=== PATIENT | male | born 1960 | race Caucasian/White ===

== ENCOUNTER 2021-05-20 10:51 | Inpatient (IN) | payer MEDICAID, SELFPAY ==
[~2021-05-20] VITALS: Ht 165.1 cm; Wt 62.1 kg
[2021-05-20 11:28] VITALS: BP 104/36
--- NOTE | 2021-05-20 11:37 | NUR ---
DR. DAVIES BEDSIDE EVALUATING PT
--- NOTE | 2021-05-20 11:37 | NUR ---
60 Y MALE BIB CAREGIVER FROM [facility]. PER PATIENT CAREGIVER PT HAS NOT EATEN OR DRINKEN ANYTHING SINCE MAY 16. PER CAREGIVER PT IS TAKING PO MEDS AND EATING ABOUT 1 MEAL A DAY AT ABOUT 60%. LAST BM WAS 05/16/21, BUT WAS A SMALL PEBBLE SIZE. PT IS NON-VERBAL AND NON-AMBULATORY. PT ALSO PRESENTS WITH MOIST COUGH THAT STARTED TODAY. BREATH SOUNDS DIMISHED THROUGHOUT LOBES. BOWEL SOUNDS HYPOACTIVE AT THIS TIME PMH: SEIZURE, DOWN'S SYNDROME, AND MILD AORTIC STENOSIS NKA
--- NOTE | 2021-05-20 11:46 | NUR ---
CAREGIVER CURRENTLY BEDSIDE WITH PATIENT
--- NOTE | 2021-05-20 11:48 | NUR ---
XRAY BEDSIDE WITH PATIENT
--- NOTE | 2021-05-20 11:53 | NUR ---
PT TAKEN TO CT VIA [facility]
--- NOTE | 2021-05-20 12:07 | NUR ---
pt returned to bed [address] [facility]
[2021-05-20] MEDS ORDERED: AZITHROMYCIN 500 MG in DEXTROSE 5% 250 ML IV ONE (12:15)
--- NOTE | 2021-05-20 12:30 | NUR ---
# 15 FR Urinary catheter inserted utilizing sterile technique. Immediate return of 20 ml YELLOW urine noted. Urine sample collected and sent to lab. Pt tolerated procedure WELL.
--- NOTE | 2021-05-20 12:30 | NUR ---
18 GUAGE IV ESTABLISHED IN AA, BLOOD WORK COLLECTED FROM IV.
--- NOTE | 2021-05-20 12:36 | NUR ---
PRAVEEN RICE COLLECTED BEDSIDE AND HANDED TO SENIOR INFORMATION SECURITY ENGINEER JENNIFER
--- NOTE | 2021-05-20 12:37 | NUR ---
URINE HANDED TO [facility] COUNSELOR BEDSIDE
[2021-05-20] MEDS ORDERED: cefTRIAXone 1,000 MG VIAL ONE (12:44)
--- NOTE | 2021-05-20 13:02 | NUR ---
WOUND PICTURES TAKEN BEDSIDE AND PLACED INTO PATIENT CHART
--- NOTE | 2021-05-20 13:07 | NUR ---
XRAY BEDSIDE WITH PATIENT
[2021-05-20 13:21] LABS: ALBUMIN 2.2 g/dL (3.4-5.0); ANION GAP 17.5 (8-16); CARBON DIOXIDE 26.1 mmol/L (21-32); CREATININE 1.6 mg/dL (0.6-1.3); POTASSIUM 3.6 mmol/L (3.5-5.1); TOTAL BILIRUBIN 0.4 mg/dL (0.0-1.0)
[2021-05-20 13:22] LABS: HEMOGLOBIN 12.7 g/dL (12.0-18.0); MEAN CORPUSCULAR VOLUME 113.6 fL (80-94); WHITE BLOOD COUNT (AUTO) 6.8 K/uL (4.8-10.8)
--- NOTE | 2021-05-20 13:29 | NUR ---
PT ADMITTED TO TELE UNDER DR. ROCA. PT TELE HOLD IN ER BED 8 CURRENTLY
--- NOTE | 2021-05-20 13:34 | NUR ---
PT MOVED TO BED 10 VIA [facility]
[2021-05-20 13:36] LABS: HEMATOCRIT 40.8 % (36-52); MEAN CORPUSCULAR HEMOGLOBIN 35 pg (27-31); MEAN CORPUSCULAR HGB CONC 31 g/dL (33-37); PLATELET COUNT (AUTO) 136 K/uL (140-450); RED BLOOD CELL COUNT(AUTO) 3.59 MIL/uL (4.20-6.10); RED CELL DISTRIBUTION WIDTH 20.5 % (11.6-13.7)
--- NOTE | 2021-05-20 13:36 | NUR ---
PATIENT PORTAL CONCIERGE TOOK W/C HOME WITH HER
[2021-05-20] MEDS ORDERED: AZITHROMYCIN 500 MG INJ VIAL IV ONE (13:37)
--- NOTE | 2021-05-20 13:37 | NUR ---
PT MOVED TO ER BED 10
[2021-05-20] MEDS ORDERED: SYN.05 PO (13:39)
[2021-05-20] MEDS ORDERED: VITA1TAB44 PO (13:39)
[2021-05-20 13:44] LABS: APPEARANCE,URINE SL CLOUDY (CLEAR); BILIRUBIN,URINE NEGATIVE (NEGATIVE); BLOOD, URINE 2+ (NEGATIVE); COLOR,URINE YELLOW (YELLOW); LEUKOCYTE ESTERASE ,URINE NEGATIVE (NEGATIVE); NITRITE, URINE NEGATIVE (NEGATIVE); PH,URINE 5.5 (5.0-9.0); UGLUCOSE NEGATIVE (NEGATIVE)
[2021-05-20 13:49] LABS: EOSINOPHILS % (MANUAL) 2 % (0-4); LYMPHOCYTES % (MANUAL) 10 % (20-46); MONOCYTES % (MANUAL) 7 % (5-12)
[2021-05-20] MEDS ORDERED: LEVE1000 PO (13:51)
[2021-05-20] MEDS ORDERED: PYRI-218 PO (13:51)
[2021-05-20] MEDS ORDERED: MULT-2253 PO (13:51)
[2021-05-20] MEDS ORDERED: FERR-20 PO (13:51)
[2021-05-20] MEDS ORDERED: OXYB5TAB26 PO (13:51)
[2021-05-20] MEDS ORDERED: COL100L GT (13:51)
[2021-05-20] MEDS ORDERED: ALPR0.5T2 PO (13:51)
--- NOTE | 2021-05-20 13:51 | NUR ---
MED REC IS DONE.
[2021-05-20] MEDS ORDERED: NACL 0.9% 2,000 ML IV ONE (13:55)
--- NOTE | 2021-05-20 14:03 | NUR ---
RIR COMPLETED FOR PRESSURE INJURIES FOUND ON PATIENT
[2021-05-20] MEDS ORDERED: DEXT 5% / NACL 0.2% 1,000 ML IV SCH (14:40)
--- NOTE | 2021-05-20 14:43 | NUR ---
Patient will be admitted to care of DR. ROCA. Admited to TELE. Will go to room 107B. Belongings list completed. Report to KIT.
[2021-05-20] MEDS ORDERED: ALPRAZolam 0.5 MG TAB PO PRN (16:05)
[2021-05-20] MEDS ORDERED: AZITHROMYCIN 500 MG in DEXTROSE 5% 250 ML IV SCH (16:05)
[2021-05-20] MEDS ORDERED: ACETAMINOPHEN 325 MG TAB PO PRN (16:05)
[2021-05-20] MEDS ORDERED: HYDROcodone/APAP 5/325 MG 1 TAB TAB PO PRN (16:05)
[2021-05-20] MEDS ORDERED: LORazepam 2 MG/ML VIAL IVP PRN (16:05)
[2021-05-20] MEDS ORDERED: ONDANSETRON 4 MG/2 ML VIAL IVP PRN (16:05)
[2021-05-20] MEDS: LEVOFLOXACIN 500 MG/D5W PREMIX 100 ML IV SCH (18:53)
[2021-05-20] MEDS: LACTULOSE 20 GM/30 ML UDC PO SCH ×2 (18:53→19:12)
[2021-05-20] MEDS: SENNA 8.6 MG TAB PO SCH ×2 (18:54→19:13)
[2021-05-20] MEDS: MAGNESIUM CITRATE 300 ML BTL PO SCH ×2 (18:55→19:14)
[2021-05-20] MEDS ORDERED: DEXT 5% /NACL 0.9% 1,000 ML IV SCH (19:00)
[2021-05-20 19:15] VITALS: BP 100/58
--- NOTE | 2021-05-20 20:16 | NUR ---
1515: PATIENT ADMITTED TO ROOM 107B. AAOX0, NONVERBAL, HX OF DOWN SYNDROME. NO ADDITIONAL DISTRESS NOTED. IV TO THE LAC 18 G. NOTED MULTI WOUND (SEE PICTURES). PATIENT HAS NO TEETH. ADMITTED DUE TO NO EATING (PO) AND NO BM SINCE 05/16/21: DIAGNOSIS: FECAL IMPACTION AND PNA. 1530: PATIENT WAS AGITATED AND MOANING DURING JABIER CARE/HYGIENE CARE AND PICTURE TAKEN. CLEANSE WOUND TO B INNER KNEE AND BUTTOCK WITH WOUND CLEANSER. PADDED DRY, AND APPLIED FOAM DRESSING. BILAT FOOT APPLIED FOAM SAM. APPLIED PILLOW BETWEEN LEGS. 1600: PATIENT IS RESTING IN BED AWAKE. NO ADDITIONAL DISTRESS NOTED. 1800: PATIENT IS ASLEEP. WILL CONT TO MONITOR. 182: REPORT TO DR ROCA REGARDING ABNORMAL LABS NA 165, BUN 46, CREA 1.6, LA 2.5, BNP 395, ALB 2.8, LIPASE 41. SPOKE TO MD AND NEW ORDER RECEIVED D5 NS AT 100CC/HR. 1845: UNABLE TO GIVE PO MEDICINE DUE TO PATIENT IS TOO SLEEPY. NO TEETH WELL. PATIENT DID NOT HAVE ANY DENTURE WHEN ARRIVED FROM ER. 1845: PATIENT WAS TRANSFER TO LOW AIR LOSS BED DUE TO MULTI WOUNDS. PATIENT IS RESTING IN BED QUIETLY. 1900: PATIENT IS RESTING IN BED QUIETLY, ASLEEP. NO ADDITIONAL DISTRESS NOTED. WILL CONT TO MONITOR. 1929: GAVE SBAR REPORT TO ALFREDO HANSON. 1950: SEND MSG TO DR ROCA REGARDING BP 95/46 (55) NOTED DURING TALENT DEVELOPMENT MANAGER ROUNDING TO DO VS, 47 HR SINUS ELANA (SLEEPING), 22 RESP, 02 SAT 92% IN RA, TEMP 99.1. AND NO POLST. NO ADDITIONAL DISTRESS NOTED. ENDORSE TO ALFREDO HANSON. 2016: SPOKE WITH DR ROCA ON THE PHONE. FULL CODE AT THIS TIME. NS 0.9% BOLUS 1L. ENDORSE TO NEXT SHIFT MARGIE FUENTES.
[2021-05-20] MEDS ORDERED: NACL 0.9% 1,000 ML IV SCH (20:25)
[2021-05-20] MEDS ORDERED: OXYBUTYNIN 5 MG TAB PO SCH (21:00)
[2021-05-20] MEDS: POTASSIUM CHLORIDE 10 MEQ TABER PO SCH (21:00)
[2021-05-20] MEDS: CLINDAMYCIN 900 MG in DEXTROSE 5% 100 ML IV SCH (21:00)
[2021-05-20] MEDS: levETIRAcetam 500 MG TAB PO SCH (21:00)
[2021-05-20] MEDS: DOCUSATE 100 MG/10 ML UDC GT SCH (21:00)
--- NOTE | 2021-05-20 21:00 | NUR ---
Order received for 1L NS Bolus for pt. Bolus started and pt appears to be tolerating well.
--- NOTE | 2021-05-20 21:00 | NUR ---
MRSA NARES COLLECTED AND SEND TO LAB. ENDORSE TO ALFREDO HANSONRUFFLERSNOW REMOVAL SUPERVISOR.
[2021-05-20 21:30] VITALS: BP 88/48
[2021-05-20 21:45] VITALS: BP 96/39
--- NOTE | 2021-05-20 22:24 | NUR ---
One L NS Bolus completed. BP:89/42, HR 75. Pt appears comfortable and in no distress. Will continue w monitoring for remainder of shift.
[2021-05-20 23:30] VITALS: BP 111/58
--- NOTE | 2021-05-20 23:30 | NUR ---
RECEIVED PT FROM TELEMETRY FOR LOW BP.TRANSFERRED TO ICU BED 3.CONNECTED TO MONITOR.PT HAS DOWN'S SYNDROME; SR NOTED ON MONITOR.HR 77 BP 111/58 02SAT 94% ON ROOM AIR RR 21; WITH PERIPHERAL IV TO LT AC G18 INTACT INFUSING D5 NS AT 100ML/HR.PT ON REGULAR PUREED DIET.NO VOMITING NOTED; INCONTINENT OF URINE.W/MULTIPLE PRESSURE ULCERS TO BLE AND SACRAL AREA.NO PAIN NOTED.WILL CONTINUE TO CLOSELY MONITOR PT.SAFETY PRECAUTION IN PLACE.BED IN LOWEST POSITION.
--- NOTE | 2021-05-20 23:45 | NUR ---
Pt tolerated NS 1L Bolus well. Pt took HS meds well (crushed in vanilla pudding). IV site (LAC20G patent). BP 65/23 - Dr. Childs notified and ordered pt be transferred to ICU w Levophed drip (no rate specified) [facility] (in addition to GI and ID consults ordered). Pt transferred to ICU promptly. Condition stable.
[2021-05-20] MEDS ORDERED: Z-GUARD PASTE TP ONE (23:53)
[2021-05-21] VITALS (9 sets, daily range): BP systolic 90–111; BP diastolic 40–89
[2021-05-21] MEDS: DEXTROSE 5% 1,000 ML IV SCH ×3 (00:35→15:30)
--- NOTE | 2021-05-21 00:36 | NUR ---
PHONE CALL TO DR TAMMY ROCA;UPDATED ON PTS PRESENT CONDITION,MADE AWARE PTS SODIUM LEVEL 165; PT ON D5NS AT 100ML/HR; NEW ORDER TO CHANGE IVF TO D5W AT 100ML/HR.CARRIED OUT
[2021-05-21] MEDS: Z-GUARD PASTE TP SCH ×2 (01:14→12:28)
--- NOTE | 2021-05-21 03:14 | NUR ---
PT ASLEEP AT THIS TIME; EASILY AROUSABLE.STILL ON ROOM AIR.INTERMITTENT NON PRODUCTIVE COUGH NOTED.FLACC 0
[2021-05-21] MEDS ORDERED: SODIUM PHOSPHATE 118 ML ENEM RC SCH (03:35)
[2021-05-21 04:56] LABS: ALBUMIN 1.5 g/dL (3.4-5.0); ANION GAP 11.8 (8-16); CARBON DIOXIDE 27.6 mmol/L (21-32); CREATININE 1.2 mg/dL (0.6-1.3); MAGNESIUM 2.3 mg/dL (1.8-2.4); PHOSPHORUS 2.9 mg/dL (2.5-4.9); POTASSIUM 3.4 mmol/L (3.5-5.1); TOTAL BILIRUBIN 0.3 mg/dL (0.0-1.0)
[2021-05-21] MEDS: CLINDAMYCIN 900 MG in DEXTROSE 5% 100 ML IV SCH ×3 (05:10→21:20)
[2021-05-21 05:23] LABS: BASOPHILS % (AUTO) 0.2 % (0.0-2.0); EOSINOPHILS % (AUTO) 0.6 % (0.0-4.0); HEMATOCRIT 31.4 % (36-52); HEMOGLOBIN 9.7 g/dL (12.0-18.0); LYMPHOCYTES # (AUTO) 0.4 K/uL (2.0-11.5); LYMPHOCYTES % (AUTO) 8.6 % (20.5-51.1); MEAN CORPUSCULAR HEMOGLOBIN 36 pg (27-31); MEAN CORPUSCULAR HGB CONC 31 g/dL (33-37); MEAN CORPUSCULAR VOLUME 115.2 fL (80-94); MONOCYTES # (AUTO) 0.1 K/uL (0.8-1.0); MONOCYTES % (AUTO) 2.9 % (1.7-9.3); NEUTROPHILS # (AUTO) 4.1 K/uL (1.8-7.7); NEUTROPHILS % (AUTO) 87.7 % (42.2-75.2); PLATELET COUNT (AUTO) 82 K/uL (140-450); RED BLOOD CELL COUNT(AUTO) 2.72 MIL/uL (4.20-6.10); RED CELL DISTRIBUTION WIDTH 20.5 % (11.6-13.7); WHITE BLOOD COUNT (AUTO) 4.6 K/uL (4.8-10.8)
--- NOTE | 2021-05-21 05:46 | NUR ---
PT ASLEEP;EASILY AROUSABLE.NO SOB NOTED ON ROOM AIR.
--- NOTE | 2021-05-21 06:00 | NUR ---
NO URINE NOTED; BLADDER DISTENDED.MAZARIEGOS CATHETER INSERTED ORDERED.400ML LIGHT SINDHU URINE NOTED.
--- NOTE | 2021-05-21 06:23 | NUR ---
PT GIVEN JELLO; TOLERATING; ATE 90%.NO S/SX OF ASPIRATION NOTED.
[2021-05-21] MEDS: LEVOTHYROXINE 0.025 MG TAB PO SCH (06:30)
--- NOTE | 2021-05-21 07:30 | NUR ---
RECEIVED REPORT FROM CRISTINO HANSON, AWAKE ALERT ,DOES NOT FOLLOW COMMAND. WATCHING TELEVISION, ON ROOM AIR O2 SAT 94% ,IV HAS #18 LT AC INFUSING D5W @ 100 ML/HR., , MAZARIEGOS CATH DRAIN CLEAR YELLOW URINE.
[2021-05-21] MEDS ORDERED: FERROUS SULFATE 325 MG TABEC PO SCH (09:00)
[2021-05-21] MEDS ORDERED: MULTIVITAMIN PO SCH (09:00)
[2021-05-21] MEDS: DOCUSATE 100 MG/10 ML UDC GT SCH ×2 (09:03→21:50)
[2021-05-21] MEDS: MULTIVITAMIN 1 TAB PO SCH (09:04)
[2021-05-21] MEDS: PYRIDOXINE 50 MG TAB PO SCH (09:04)
[2021-05-21] MEDS: VIT-B COMP/VIT-C/FOLIC ACID 1 TAB PO SCH (09:04)
[2021-05-21] MEDS: levETIRAcetam 500 MG TAB PO SCH ×2 (09:04→21:50)
[2021-05-21] MEDS: POTASSIUM CHLORIDE 10 MEQ TABER PO SCH ×2 (09:04→21:00)
[2021-05-21] MEDS: bisacodyL 10 MG SUPP RC SCH (09:07)
--- NOTE | 2021-05-21 09:08 | NUR ---
SEEN BYDR. ROCA AT BED SIDE. ORDER FECEIVED,
--- NOTE | 2021-05-21 09:15 | NUR ---
SEEN BY ABELINO GÓMEZ PT. TO TRANSFER TO TELE.
--- NOTE | 2021-05-21 10:41 | NUR ---
call tele report gived to YARA Julian
[2021-05-21] MEDS ORDERED: POTASSIUM CHLORIDE 20% 40 MEQ/15 ML UDC GT SCH (11:00)
--- NOTE | 2021-05-21 11:10 | NUR ---
TRANSFER PT. TO RM 107 IN BED. REPORT GIVE TO YARA AT BED SIDE.
[2021-05-21] MEDS ORDERED: POTASSIUM CHLORIDE 20% 40 MEQ/15 ML UDC PO SCH (12:00)
--- NOTE | 2021-05-21 12:00 | NUR ---
PT ASSISTED WITH LUNCH , ONE PATIENT ASSIST . TOLERATED WELL. ALL SAFETY MEASURES ARE IN PLACE.
[2021-05-21] MEDS: SENNA 8.6 MG TAB PO SCH ×2 (12:27→17:59)
[2021-05-21] MEDS: LACTULOSE 20 GM/30 ML UDC PO SCH ×2 (12:28→17:59)
--- NOTE | 2021-05-21 12:45 | NUR ---
DC PLANNIN YRS OLD MALE PATIENT WAS ADMITTED FROM [facility] WITH A DX OF FECAL IMPACTION. PATIENT HAS A HX OF SZ, AND DOWN SYNDROME. CXR SHOWED PNEUMONIA CT ABD SHOWED RECTAL FECAL IMPACTION. LAC 5.1 -2.3 TROP 0.134. NA+ 162 ADMINISTERED IVF, IV ABX CLINDAMYCIN AND CONTINUED HOME MEDS. CONSULTED WITH GI AND ID. DC PLAN TO RETURN TO [facility] WHEN STABLE. CM TO FOLLOW. Addendum: 05/23/21 at 1602 by Cher Thompson RN DC PLANNING: SPOKE WITH DR ABELINO Tom REGARDING THE DISCHARGE PLAN, HE STATED AWAITING FOR BP TO BE STABLE AND MACHINERY MOVER CLEARANCE. DC PLAN TO GO BACK TO NURSING HOME WITH PO ABX. PLAS CALL THE FACILITY FOR TRANSPORT. CM TO FOLLOW Addendum: 05/26/21 at 1504 by Cher Thompson RN DC PLANNING: PER PRIMARY NURSE JOSELIN STATED WHEN SHE CALLED THE FACILITY THE NURSE TOLD HER THEY CAN NOT TAKE PATIENT BACK BECAUSE OF UN STAGEABLE WOUND. CALLED THE RESIDENT [phone] SPOKE WITH ALLEGRA DISCUSSED THE ISSUES AND CONCERN, ALLEGRA STATED WILL TALK TO HER NURSE AND CALL BACK. FAXED TO [facility], [facility], [facility], [facility], [facility] AND [facility]. CM TO FOLLOW Addendum: 05/28/21 at 1540 by Cher Thompson RN DC PLANNING: [facility] SPOKE WITH DMITRY [facility] NO BED AVAILABLE .[facility] SPOKE WITH RL NO BED AVAILABLE. FAXED TO [facility], [facility] . CM TO FOLLOW Addendum: 05/29/21 at 0901 by Cher Thompson RN DC PLANNING: RECEIVED A CALL FROM [facility] SPOKE WITH JULIO C CORTEZ ACCEPTED PATIENT AND CAN GO TO ROOM 16A THE AD[address]ESS [id number] [place] [id number] # TO GIVE REPORT [phone] . ARRANGED TRANSPORT WITH [facility] U[facility] 11AM. NOTIFIED SAMY HANSON.
--- NOTE | 2021-05-21 12:46 | NUR ---
05/21/21 RD INITIAL ASSESSMENT COMPLETED PLEASE REFER TO NUTRITION ASSESSMENT UNDER CARE ACTIVITY FOR ESTIMATED NUTRITIONAL NEEDS. 1. CONTINUE PUREE DIET TOLERATED 3. RECOMMEND ENSURE BID FOR BREAKFAST AND DINNER -THIS WILL PROVIDE 700 KCALS 40 GM PROTEIN. 3. RECOMMEND MACRINA IX DAILY FOR LUNCH 4. RD TO FOLLOW-UP 2-3 DAYS, HIGH RISK REVIEWED BY ORLANDO LUTHER RD
--- NOTE | 2021-05-21 13:09 | NUR ---
WOUND CARE EVALUATION NOTE: REASON FOR EVALUATION: LOW DAVON SCALE AND MULTIPLE PRESSURE INJURY WOUNDS SKIN ASSESSMENT DONE WITH THIS 60 Y/O PT ADMITTED FROM [facility] TO [facility] WITH INITIAL DX DECREASE ORAL INTAKE, PAST MEDICAL HX HISTORY SEIZURE DISORDER, DOWN SYNDROME, ANEMIA, OVERACTIVE BLADDER, HYPOTHYROIDISM AND AORTIC STENOSIS. PT. ADMITTED WITH MULTIPLE PRESSURE INJURIES, ALBUMIN LEVEL 1.5. BMI 17. ALL ABOVE INFORMATION OBTAINED FROM ADMISSION H&P. PT IS AWAKE, ABLE TO MAKE HAND GESTURE FOR YES, NO PT WITH UPPER AND LOWER EXTREMITIES CONTRACTURES. SKIN IS WARM AND MOIST, BLE NO HAIR GROWTH, NO EDEMA. DORSAL PEDAL PULSES PRESENT AND NORMAL. CAPILLARY REFILLED < 2 SEC. X 10 TOES, INCONTINENT BOWEL AND BLADDER, PLAN OF CARE DISCUSSED WITH PRIMARY RN. INTEGUMENTARY: -ORAL MEMBRANE PINK INTACT, LIPS, CHEEKS SKIN DRY, NO OPEN WOUNDS -MOISTURE ASSOCIATED DERMATITIS R/L GROINS EXTENDED TO SCROTUM SKIN RED, MOIST AND INTACT -PRESSURE INJURY SACRALCOCCYX UN-STAGEABLE 80% BROWN SOFT ESCHAR TISSUE WITH 20 % PARTIAL THICKNESS SKIN LOSS WITH DTI TO WOUND BED. JABIER-WOUND SKIN NON-BLANCHABLE, ENTIRE AREA [id number], WOUND BED DRY, NO ODOR, FURTHER DAMAGE INDICATED. -PRESSURE INJURY DTI TO LEFT MEDIAL KNEE 5X3CM 100% MAROON, JABIER WOUND SKIN DRY INTACT -PRESSURE INJURY UN-STAGEABLE LEFT FOOT PLANTAR ASPECT 2X1CM 100% BLACK DRY ESCHAR TISSUE, JABIER WOUND SKIN INTACT. -PRESSURE INJURY STAGE 2 LEFT MEDIAL HEEL 2X2CM CLEAR FLUIDS BLISTER, SKIN INTACT -PRESSURE INJURY STAGE 2 RIGHT TROCHANTER 4X3X0.1CM WOUND BED 100% PINK, MOIST, NO ODOR JABIER WOUND SKIN DRY INTACT -PRESSURE INJURY DTI TO RIGHT UPPER LATERAL LEG 3X2CM 100% MAROON BLISTERING SKIN, THIN AND EASILY TO TORN, JABIER WOUND SKIN DRY INTACT -PRESSURE INJURY DTI TO RIGHT MEDIAL KNEE 3X3CM 100% MAROON, BLISTERING SKIN, JABIER WOUND SKIN DRY INTACT RECOMMENDATIONS: -APPLY HYDRAGUARD TO R/L GROINS EXTENDED TO SCROTAL BID AND PRN IF SOILING -APPLY FOAM DRESSING TO LEFT, RIGHT MEDIAL KNEES, LEFT MEDIAL HEEL AND RIGHT UPPER LATERAL LEG Q3 DAYS AND PRN IF SOILING, OFFLOADING AREA -CLEANSE SACRALCOCCYX AND RIGHT HIP GENTLY WITH WOUND CARE SOLUTION, PAT DRY APPLY HYDROGEL AND COVER WITH DRY ISLAND DRESSING AND DAILY AND PRN SOILAGE. -PAINT LEFT PLANTAR FOOT WITH BETADINE SWAP BID AND MATTHEW -APPLY HEEL PROTECTOR TO BILATERAL HEELS -TURN AND REPOSITION PATIENT Q 2H -ASSESS AND MONITOR SKIN CONDITION DURING POSITION CHANGE -OFFLOAD BILATERAL HEELS BY PLACING PILLOWS UNDER CALVES AT ALL TIMES, UNLESS OTHERWISE CONTRAINDICATED -PRESSURE REDISTRIBUTION SURFACE THERAPY -KEEP SKIN CLEAN AND DRY AT ALL TIMES. PLEASE CONTACT WOUND CARE NURSE FOR ANY QUESTION AND CHANGE OF WOUND CONDITION.
--- NOTE | 2021-05-21 13:30 | NUR ---
PATIENT HAS BEEN SCREENED AND CATEGORIZED HIGH NUTRITION RISK. PATIENT WILL BE SEEN WITHIN 1-2 DAYS OF ADMISSION. 05/21/21-05/22/[address]
--- NOTE | 2021-05-21 14:10 | NUR ---
PT CHANGED AND REPOSITIONED. MD PUGA AT BEDSIDE. PER D IF PT HAS NO BM DO ENEMA
[2021-05-21] MEDS: LEVOFLOXACIN 500 MG/D5W PREMIX 100 ML IV SCH (15:30)
--- NOTE | 2021-05-21 15:41 | NUR ---
PT RESTRAINS ASSESSED. PT RELEASED FOR 15 MIN PT TOOK OT TRACHEOSTOMY AT THIS TIME ATTEMPTED TO GET OUT OF BED. PT REORIENTED AND PLACED BACK FOR SAFERTY REASONS. ALL SAFETY MEASURES ARE IN PLACE Addendum: 05/21/21 at 1817 by Shala Garibay RN RN WRONG PT
--- NOTE | 2021-05-21 17:15 | NUR ---
PT REPOSITIONED TOLERATED WELL. SMALL BM ATT HIS TIME , PT CHANGED AND REPOSITIONED ALL SAFETY MEASURES IN PLACE
[2021-05-21] MEDS: METOCLOPRAMIDE 10 MG/2 ML INJ VIAL IVP SCH (18:00)
--- NOTE | 2021-05-21 18:15 | NUR ---
DINNER MEAL SET UP. ALL SAFETY MEASURES IN PLACE
--- NOTE | 2021-05-21 19:27 | NUR ---
PT ENDORSED TO FUNERAL HOME ASSOCIATE RN , PT INSTABLE CONDITION
--- NOTE | 2021-05-21 19:28 | NUR ---
RECEIVED REPORT FROM AM NURSE. PATIENT IS AWAKE NON VERBAL FOLLOWS COMMAND. NO S/S OF RESPIRATORY DISTRESS. BREATHING REGULAR NON LABORED. IVF D5W INFUSING AT 100 ML/HR ON THE LFA. SKIN WARM AND DRY TO TOUCH. ALL SAFETY PRECAUTIONS ARE IN PLACE. CALL LIGHT WITHIN REACH. WILL CONTINUE TO MONITOR.
--- NOTE | 2021-05-21 21:30 | NUR ---
PATIENT HAS 2ND DEGREE BLOCK MOBITZ 2 OCCASIONALLY. CALLED AND SPOKE WITH DR. TAMMY ROCA, ORDERED CARDIOLOGY CONSULT WITH DR. SULEMA POOLE.
--- NOTE | 2021-05-21 21:45 | NUR ---
POTASSIUM 20 MEQ NOT GIVEN CAUSE MEDS IS EXTENDED RELEASE AND PATIENT CANNOT SWALLOW WHOLE. PT K+ - 3.4.
[2021-05-21] MEDS: POLYETHYLENE GLYCOL 17 GM/PKT PO SCH (21:50)
--- NOTE | 2021-05-21 21:50 | NUR ---
ADMINISTERED MEDS PER MD ORDERED.
--- NOTE | 2021-05-21 22:25 | NUR ---
IV INFILTRATED. INSERTED A NEW LINE ON THE RIGHT WRIST, TOLERATED WELL.
[2021-05-22] VITALS: BP 110/55
[2021-05-22] MEDS: Z-GUARD PASTE TP SCH ×2 (01:00→13:13)
[2021-05-22] MEDS: HYDRAGUARD CREAM TP SCH ×2 (01:00→13:13)
--- NOTE | 2021-05-22 02:12 | NUR ---
ROUNDED PATIENT. PT IS AWAKE NO SOB NOTED. RESPIRATION EVEN UNLABORED. SAFETY MEASURES ARE IN PLACE. CALL LIGHT WITHIN REACH.
[2021-05-22] MEDS: METOCLOPRAMIDE 10 MG/2 ML INJ VIAL IVP SCH ×5 (02:35→23:49)
[2021-05-22 04:00] VITALS: BP 105/51
[2021-05-22] MEDS: CLINDAMYCIN 900 MG in DEXTROSE 5% 100 ML IV SCH ×3 (04:51→20:58)
[2021-05-22] MEDS: LEVOTHYROXINE 0.025 MG TAB PO SCH (06:33)
--- NOTE | 2021-05-22 06:33 | NUR ---
SYNTHROID GIVEN PER MD ORDERED.
--- NOTE | 2021-05-22 06:33 | NUR ---
REGLAN 5 MG IVP GIVEN ORDERED
[2021-05-22 06:49] LABS: BASOPHILS % (AUTO) 0.3 % (0.0-2.0); EOSINOPHILS # (AUTO) 0.1 K/uL (0-0.4); EOSINOPHILS % (AUTO) 1.8 % (0.0-4.0); HEMATOCRIT 30.7 % (36-52); HEMOGLOBIN 9.6 g/dL (12.0-18.0); LYMPHOCYTES # (AUTO) 0.4 K/uL (2.0-11.5); LYMPHOCYTES % (AUTO) 10.6 % (20.5-51.1); MEAN CORPUSCULAR HEMOGLOBIN 35 pg (27-31); MEAN CORPUSCULAR HGB CONC 31 g/dL (33-37); MEAN CORPUSCULAR VOLUME 112.3 fL (80-94); MONOCYTES # (AUTO) 0.1 K/uL (0.8-1.0); MONOCYTES % (AUTO) 3.8 % (1.7-9.3); NEUTROPHILS # (AUTO) 3.2 K/uL (1.8-7.7); NEUTROPHILS % (AUTO) 83.5 % (42.2-75.2); PLATELET COUNT (AUTO) 72 K/uL (140-450); RED BLOOD CELL COUNT(AUTO) 2.73 MIL/uL (4.20-6.10); RED CELL DISTRIBUTION WIDTH 20.2 % (11.6-13.7); WHITE BLOOD COUNT (AUTO) 3.8 K/uL (4.8-10.8)
[2021-05-22 06:51] LABS: ANION GAP 11.5 (8-16); CARBON DIOXIDE 24.2 mmol/L (21-32); CREATININE 1.2 mg/dL (0.6-1.3)
[2021-05-22 06:55] LABS: MAGNESIUM 2.1 mg/dL (1.8-2.4); PHOSPHORUS 3.3 mg/dL (2.5-4.9)
[2021-05-22 06:58] LABS: POTASSIUM 2.7 mmol/L (3.5-5.1)
--- NOTE | 2021-05-22 06:59 | NUR ---
RECEIVED CRITICAL VALUE FROM KAT, BUN - 30. K - 2.7.
--- NOTE | 2021-05-22 07:03 | NUR ---
RECEIVED REPORT FROM GEOGRAPHIC INFORMATION SYSTEMS DIRECTOR NURSE. PATIENT STABLE. NO S/S OF DISTRESS. BREATHING SYMMETRICAL. CALL LIGHT IN REACH. ALL SAFETY MEASURES IN PLACE. IV RUNNING PER MD ORDERS
[2021-05-22] MEDS: DEXTROSE 5% 1,000 ML IV SCH (07:13)
--- NOTE | 2021-05-22 07:20 | NUR ---
MESSAGED DR. ROCA, GOT AN ORDER FOR K=RIDER 40 MEQ. WILL ENDORSED TO AM NURSE FOR FOLLOW UP WITH PHARMACY.
--- NOTE | 2021-05-22 07:30 | NUR ---
CONDITION REMAIN STABLE. ENDORSED TO AM SHIFT NURSE FOR CONTINUITY OF CARE.
--- NOTE | 2021-05-22 07:35 | NUR ---
ENDORSED TO AM NURSE FOR CONTINUITY OF CARE. PT IS STABLE.
[2021-05-22 08:00] VITALS: BP 97/47
[2021-05-22] MEDS ORDERED: KCL 20 MEQ/WATER INJ PREMIX 200 ML IV SCH (08:30)
[2021-05-22] MEDS ORDERED: MAGNESIUM CITRATE 300 ML BTL PO ONE (09:00)
[2021-05-22] MEDS: POTASSIUM CHLORIDE 10 MEQ TABER PO SCH (09:00)
[2021-05-22] MEDS: DOCUSATE 100 MG/10 ML UDC GT SCH (09:34)
[2021-05-22] MEDS: LACTULOSE 20 GM/30 ML UDC PO SCH ×3 (09:34→17:47)
[2021-05-22] MEDS: POLYETHYLENE GLYCOL 17 GM/PKT PO SCH ×2 (09:35→21:41)
[2021-05-22] MEDS: levETIRAcetam 500 MG TAB PO SCH ×2 (09:35→20:58)
[2021-05-22] MEDS: VIT-B COMP/VIT-C/FOLIC ACID 1 TAB PO SCH (09:36)
[2021-05-22] MEDS: SENNA 8.6 MG TAB PO SCH ×3 (09:37→17:47)
[2021-05-22] MEDS: PYRIDOXINE 50 MG TAB PO SCH (09:37)
[2021-05-22] MEDS: MULTIVITAMIN 1 TAB PO SCH (09:37)
[2021-05-22] MEDS: bisacodyL 10 MG SUPP RC SCH (09:38)
--- NOTE | 2021-05-22 09:50 | NUR ---
PT MEDICATED PER MD ORDER. EDUCATED ON MEDICATION GIVE. PT IS NONVERBAL AND IN NEED OF REINFORCEMENT. PATIENT HAD BM AND WAS CLEANED AND CHANGED. SACRAL DRESSING CHANGED. PATIENT STABLE. NO S/S OF DISTRESS. BREATHING SYMMETRICAL. CALL LIGHT IN REACH. ALL SAFETY MEASURES IN PLACE. IV RUNNING PER MD ORDERS
--- NOTE | 2021-05-22 11:31 | NUR ---
NEW IV INSERTED ON LEFT HAND 24 G. IV ON RIGHT HAND STILL INTACT AND FLUSHING. RIGHT HAND SWOLLEN. NO S/S OF DISTRESS. ALL SAFETY MEASURES IN PLACE.
[2021-05-22] MEDS: POTASSIUM CHL 20 MEQ / DEXT 5% 1,000 ML IV SCH ×2 (11:34→23:55)
[2021-05-22 12:00] VITALS: BP 86/42
--- NOTE | 2021-05-22 12:38 | NUR ---
SPOKE TO DR POOLE. UPDATED ON ORDERS. POTASSIUM FLUIDS RUNNING PER MD ORDER. WILL CONTINUE TO MONITOR.
[2021-05-22] MEDS: GAUZE TP SCH (13:13)
[2021-05-22] MEDS: SKINTEGRITY HYDROGEL TP SCH (15:16)
[2021-05-22] MEDS: LEVOFLOXACIN 500 MG/D5W PREMIX 100 ML IV SCH (15:38)
--- NOTE | 2021-05-22 15:53 | NUR ---
PT RESTING IN BED. NO S/S OF DISTRESS. BREATHING SYMMETRICAL. CALL LIGHT IN REACH. ALL SAFETY MEASURES IN PLACE. IV FLUIDS RUNNING PER MD ORDER
[2021-05-22 16:00] VITALS: BP 103/40
--- NOTE | 2021-05-22 16:36 | NUR ---
DC PLANNING JOEL ATTEMPTED TO CONTACT PATIENT'S [facility] WORKER CHIN CHOUDHURY AT . IRC/WORKER DID NOT RESPONDED AND SW LEFT HER SEVERAL CALL OVER PAST TWO DAYS. SW WILL ATTEMPT AGAIN TOMORROW AND FOLLOW UP WITH PATIENT NEEDED. Addendum: 05/26/21 at 1348 by Gwen Funes CM JOEL HAS ATTEMPTED SEVERAL TIMES TO CONTACT PATIENT'S [facility] WORKER CHIN CHOUDHURY AT . JOEL ATTEMPTED AGAIN TODAY 05/26/2021 AT ABOUT 13:30 TO REACH IRC/WORKER WHO DID NOT RESPONDED AND SW LEFT HER ANOTHER MSG. SW ALSO ATTEMPTED TO BE TRANSFER TO A DUTY WORKER DUE TO PATIENT'S LEVEL OF CARE BEING URGENT AND IN NEED OF DISCUSSION WITH IRC BUT NO ONE ANSWER AND INSTEAD THESE CHOP SAW OPERATOR LEFT ANOTHER MSG TO DUTY IR/WORKER LINE FOR SOMEONE TO CALL BACK THESE CHOP SAW OPERATOR AND ADDRESS PATIENT'S MATTERS. Addendum: 05/26/21 at 1604 by Gwen Funes CM DC PLANNING: RE HER DUTY WORKER FROM [facility] CALL BACK THESE CHOP SAW OPERATOR ABOUT PATIENT INFORMATION AND CURRENT STATUS WITH NEEDING EMERGENCY PLACEMENT DUE TO CURRENT PLACEMENT NOT ACCEPTING HIM BACK OF TODAY. 05/26/2021 PER IRC/WORKER SHE WILL BE LOOKING FOR EMERGENCY PLACEMENT TODAY HOWEVER; SHE APOLOGIZED FOR GETTING ON PATIENT'S CASE AND LOOKING FOR PLACEMENT UNTIL NOW. SHE REPORTED THAT BECAUSE OF THE TIME THERE IS THE CHANCE THAT PATIENT WILL NOT BE DC TODAY BUT POSSIBLY TOMORROW. SHE WAS TRANSFER TO TO DISCUSS PATIENT LEVEL OF CARE NEEDS TO SEARCH FOR PROPER PLACEMENT BETWEEN TODAY AND TOMORROW. Addendum: 05/26/21 at 1646 by Gwen Funes JOEL CALL THE DISPATCHER SERVICE CHIEF ALLEGRA HEAD AT [facility] IN [facility] . TO DISCUSS AND GATHER HIS COLLATERAL INFORMATION. PER ALLEGRA HEAD PATIENT HAS BEEN RESIDING AT THEIR BOARD AND CARE FACILITY FOR ABOUT 5 DAYS AFTER PATIENT DISCHARGED FROM [facility] DUE TO WOUND CARE. =ER ALLEGRA HEAD PATIENT WILL NOT BE ABLE TO RETURN TO THEIR FACILITY OF TODAY 05/26/2021. JOEL CALL PATIENT'S IRC/ WORKER MACEY NEELY AT HOWEVER SHE DID NOT REPOND BACK AND JOEL CONTACTED IRC/DUTY WORKER RE HER AT . PER RE HER PATIENT HAS NO ISSUES GETTING CARE AND MEDICATIONS FROM PCP DR. ANTHONY ALVAREZ, PATIENT IS NOT CONSERVED AND WILL BE TRANSPORTED TO AN EMERGENCY PLACEMENT THAT MEET HIS MEDICAL NEEDS WHEN PLACEMENT IS FOUND POSSIBLY TODAY 05/26/2021 OR TOMORROW 05/27/2021. DUE TO LAST PLACEMENT [facility] PLACE ITS NOT TAKING PATIENT BACK AFTER HIS DC FROM [facility] TODAY. PER IRC/DUTY WORKER RE HER PATIENT IS NOT CONSERVED AND HAS NO FAMILY INVOLVEMENT IN HIS CARE. PER RE HER IRC ARE PATIENT'S MEDICAL DECISION MAKERS FOR PATIENT'S CARE AND IRC/WORKER WILL BE ARRANGING PATIENT'S NEW PLACEMENT TO A FACILITY THAT MEETS HIS NEEDS. IRC WORKER RE HER WILL BE CONTACTING [facility]/JOEL/JIM TO DISCUSS PATIENTS DISCHARGE. SW WILL FOLLOW UP NEEDED.
--- NOTE | 2021-05-22 17:46 | NUR ---
PT PULLED OUT IV ON LEFT HAND. CANULA INTACT. NO S/S OF DISTRESS. BREATHING SYMMETRICAL. IV ON RIGHT HAND STILL INTACT AND FLUSHING. CALL LIGHT IN REACH. ALL SAFETY MEASURES IN PLACE.
--- NOTE | 2021-05-22 19:25 | NUR ---
RECEIVED BEDSIDE REPORT FROM AM SHIFT RN. PT HAS A MAZARIEGOS CATHETER, ON ROOM AIR, BED BOUND. PT HAS A LEFT WRIST 24 G. NON-VERBAL, ON PUREE DIET. HAS POTASSIUM CHL 20MEQ RUNNING AT 80ML/HR, SAFETY MEASURE IN PLACE, PT STABLE. WILL CONTINUE TO MONITOR.
--- NOTE | 2021-05-22 19:34 | NUR ---
ENDORSED PT TO MFT NURSE. PATIENT STABLE. NO S/S OF DISTRESS. BREATHING SYMMETRICAL. CALL LIGHT IN REACH. ALL SAFETY MEASURES IN PLACE. IV RUNNING PER MD ORDERS.
[2021-05-22 20:00] VITALS: BP 105/55
--- NOTE | 2021-05-22 21:41 | NUR ---
ADMINISTERED PTS MEDS. CHANGED PTS SOILED DIAPER. HAD A BM , SOFT, AND GREEN. NEW IV SITE RIGHT HAND 22G. D/C LEFT WRIST 24G, CALLED DR. FREDERICK TO GET A PO LIQUID ORDER OF POTASSIUM, ORDER IS IN. D/C POTASSIUM 20MEQ PO EXTENDED RELEASE BECAUSE CANNOT CRUSH.
[2021-05-22] MEDS ORDERED: POTASSIUM CHLORIDE 20% 40 MEQ/15 ML UDC PO SCH ×2 (22:00→22:15)
[2021-05-22] MEDS ORDERED: POTASSIUM CHLORIDE 20% 40 MEQ/15 ML UDC ONE (22:09)
--- NOTE | 2021-05-22 22:13 | NUR ---
PT HAS AN ORDER FOR EXTENDED RELEASE POTASSIUM TABLETS, BUT UNABLE TO CRUSH THEM. CONTACTED DR. FREDERICK FOR LIQUID POTASSIUM . ORDER CARRIED OUT.
[2021-05-23] VITALS: BP 122/43
--- NOTE | 2021-05-23 00:10 | NUR ---
PATIENT IS ASLEEP. NO SIGNS OF DISTRESS, PT STABLE. WILL CONTINUE TO MONITOR.
[2021-05-23 01:04] LABS: PROTHROMBIN TIME 12.7 secs (10.8-13.4)
[2021-05-23] MEDS: HYDRAGUARD CREAM TP SCH ×2 (01:09→13:22)
[2021-05-23] MEDS: Z-GUARD PASTE TP SCH ×2 (01:09→13:22)
[2021-05-23 04:00] VITALS: BP 84/32
[2021-05-23] MEDS: CLINDAMYCIN 900 MG in DEXTROSE 5% 100 ML IV SCH ×3 (04:36→20:43)
[2021-05-23] MEDS: METOCLOPRAMIDE 10 MG/2 ML INJ VIAL IVP SCH ×2 (06:00→12:35)
--- NOTE | 2021-05-23 06:00 | NUR ---
CONTACTED DR. POOLE ABOUT PTS BP.77/32 HR 47 . RECEIVED AN ORDER OF 500CC BOLUS NS STAT, AND AFTER GIVE NS @75ML/HR. ORDER CARRIED OUT.
[2021-05-23 06:20] LABS: HEMATOCRIT 26.1 % (36-52); HEMOGLOBIN 8.5 g/dL (12.0-18.0); MEAN CORPUSCULAR HEMOGLOBIN 36 pg (27-31); MEAN CORPUSCULAR HGB CONC 32 g/dL (33-37); MEAN CORPUSCULAR VOLUME 110.8 fL (80-94); PLATELET COUNT (AUTO) 58 K/uL (140-450); RED BLOOD CELL COUNT(AUTO) 2.36 MIL/uL (4.20-6.10); RED CELL DISTRIBUTION WIDTH 19.8 % (11.6-13.7); WHITE BLOOD COUNT (AUTO) 3.3 K/uL (4.8-10.8)
[2021-05-23] MEDS ORDERED: NACL 0.9% 1,000 ML IV SCH (06:30)
[2021-05-23] MEDS ORDERED: NACL 0.9% 500 ML IV SCH (06:30)
[2021-05-23 06:48] LABS: ALBUMIN 1.4 g/dL (3.4-5.0); ANION GAP 13.5 (8-16); CARBON DIOXIDE 21.5 mmol/L (21-32); CREATININE 1.3 mg/dL (0.6-1.3); TOTAL BILIRUBIN 0.4 mg/dL (0.0-1.0)
[2021-05-23] MEDS: LEVOTHYROXINE 0.025 MG TAB PO SCH (07:00)
--- NOTE | 2021-05-23 07:30 | NUR ---
ENDORSED BEDSIDE REPORT TO AM SHIFT RN.
--- NOTE | 2021-05-23 07:31 | NUR ---
RECEIVED REPORT FROM PROCESS DEVELOPMENT TECHNICIAN FOR CONTINUITY OF CARE. PATIENT IS IN BED AT THIS TIME. WILL CONTINUE TO MONITOR. CALL LIGHT WITHIN REACH. ALL SAFETY MEASURES IN PLACE.
[2021-05-23 08:00] VITALS: BP 94/41
--- NOTE | 2021-05-23 08:04 | NUR ---
PLACED CALL TO DR POOLE, CARDIOLOGY REGARDING PATIENT'S BP. BP IS 89/39 WITH A PULSE OF 39. AWAITING CALL BACK.
--- NOTE | 2021-05-23 08:11 | NUR ---
RECEIVED A CALL BACK FROM DR. POOLE. INFORMED HIM OF PATIENTS LOW BP AND HEART RATE, WELL MEDICATIONS SCHEDULED. DR ORDERED POTASSIUM 40 MeQ 15ML NOW, EKG, AND TROPONIN. PATIENT WILL RECEIVE A TOTAL OF 80 MEQ POTASSIUM.
[2021-05-23 08:33] LABS: EOSINOPHILS % (MANUAL) 3 % (0-4); LYMPHOCYTES % (MANUAL) 14 % (20-46); MONOCYTES % (MANUAL) 3 % (5-12)
[2021-05-23] MEDS ORDERED: POTASSIUM CHLORIDE 20% 40 MEQ/15 ML UDC PO SCH (09:00)
--- NOTE | 2021-05-23 09:15 | NUR ---
RECEIVED CALL FROM LAB TO REPORT TROPONIN [phone]. DR POOLE MADE AWARE. WILL CONTINUE TO MONITOR.
[2021-05-23] MEDS: LACTULOSE 20 GM/30 ML UDC PO SCH ×3 (09:20→16:05)
[2021-05-23] MEDS: POTASSIUM CHLORIDE 20% 40 MEQ/15 ML UDC PO SCH ×2 (09:20→20:44)
[2021-05-23] MEDS: PYRIDOXINE 50 MG TAB PO SCH (09:21)
[2021-05-23] MEDS: MULTIVITAMIN 1 TAB PO SCH (09:21)
[2021-05-23] MEDS: POLYETHYLENE GLYCOL 17 GM/PKT PO SCH (09:22)
[2021-05-23] MEDS: VIT-B COMP/VIT-C/FOLIC ACID 1 TAB PO SCH (09:22)
[2021-05-23] MEDS: SENNA 8.6 MG TAB PO SCH ×2 (09:22→13:22)
[2021-05-23] MEDS: levETIRAcetam 500 MG TAB PO SCH ×2 (09:23→20:43)
[2021-05-23] MEDS: bisacodyL 10 MG SUPP RC SCH (09:30)
[2021-05-23 12:00] VITALS: BP 98/42
--- NOTE | 2021-05-23 12:00 | NUR ---
DID ROUNDS ON PATIENT. PATIENT IN BED AT THIS TIME. RESPIRATIONS ARE EVEN AND UNLABORED. BP IS 98/46 AT THIS TIME WITH HEART RATE AT 47. NO SIGNS OF DISTRESS NOTED. WILL CONTINUE TO MONITOR PATIENT AND WILL RE-ASSESS BP AND HEART RATE.
[2021-05-23] MEDS: POTASSIUM CHL 20 MEQ / DEXT 5% 1,000 ML IV SCH (12:25)
--- NOTE | 2021-05-23 12:57 | NUR ---
05/23/21 RD FOLLOW UP COMPLETED PLEASE REFER TO NUTRITION ASSESSMENT UNDER CARE ACTIVITY FOR ESTIMATED NUTRITIONAL NEEDS. 1. CONTINUE PUREE DIET TOLERATED 2. CONTINUE ENSURE BID FOR BREAKFAST AND DINNER -THIS WILL PROVIDE 700 KCALS 40 GM PROTEIN. 3. CONTINUE MACRINA IX DAILY FOR LUNCH 4. RD TO FOLLOW-UP 2-3 DAYS, HIGH RISK REVIEWED BY ARACELI HENRIQUEZ RD
[2021-05-23] MEDS: SKINTEGRITY HYDROGEL TP SCH (13:24)
[2021-05-23] MEDS: GAUZE TP SCH (13:25)
[2021-05-23] MEDS: LEVOFLOXACIN 500 MG/D5W PREMIX 100 ML IV SCH (15:28)
--- NOTE | 2021-05-23 15:50 | NUR ---
CONTACTED RESPIRATORY THERAPIST BECAUSE PATIENT WAS SATING IN THE LOW 80's. PLACED PATIENT ON 5L NASAL CANULA. RESPIRATORY CAME AND DEEP SUCTIONED PATIENT. SUCTION WAS SUCCESSFUL MUCUS WAS REMOVED AND PATIENT NOW SATING AT 92-93 ON ROOM AIR. PATIENT IS STABLE.
[2021-05-23 16:00] VITALS: BP 94/46
--- NOTE | 2021-05-23 16:02 | NUR ---
PATIENT HEART RATE AT 72 BPM. PATIENT IN BED AT THIS TIME. ASSISTED AUTISM TUTOR WITH CLEANING AND REPOSITIONING PATIENT. PATIENT TOLERATED WELL. WILL CONTINUE TO MONITOR.
[2021-05-23] MEDS ORDERED: FUROSEMIDE 20 MG TAB PO SCH (16:05)
--- NOTE | 2021-05-23 16:15 | NUR ---
DR IBRAHIM AT BEDSIDE. INFORMED HIM OF PATIENT LOW SATURATION AND RT DEEP SUCTIONING. NO NEW ORDERS AT THIS TIME.
[2021-05-23] MEDS: MIDODRINE 5 MG TAB PO SCH (19:07)
--- NOTE | 2021-05-23 19:18 | NUR ---
ENDORSED PATIENT TO [employer] SALES REPRESENTATIVE FOR CONTINUITY OF CARE. PATIENT IS STABLE.
[2021-05-23 20:00] VITALS: BP 102/58
--- NOTE | 2021-05-23 22:00 | NUR ---
PATIENT RECEIVED IN BED ALERT. TRACH/VENT FI02 24, TV 500, RATE 12, AND PEAK 5. PATIENT REQUIRES MAXIMAL CARE WITH ADL'S/TRANSFERS. TUBE FEEDING CONTINUED AT 65CC/HR. NO NAUSEA/VOMITING NOTED. REQUIRES 2 PERSON ASSISTANCE. SACRAL DRESSING INTACT. DEBRIDEMENT NOTED ON . FLACC 0. MAZARIEGOS CATHETER PATENT WITH 300CC IN BAG. NO ACUTE DISTRESS NOTED. DISCUSSED MEDICATION MANAGEMENT, FALL AND SAFETY INTERVENTION AND MEDICAL PLAN OF CARE. NO ACUTE DISTRESS NOTED.
[2021-05-24] VITALS: BP 96/60
[2021-05-24] MEDS: HYDRAGUARD CREAM TP SCH ×2 (00:13→13:45)
[2021-05-24] MEDS: Z-GUARD PASTE TP SCH ×2 (00:13→13:45)
[2021-05-24 04:00] VITALS: BP 102/58
[2021-05-24] MEDS: CLINDAMYCIN 900 MG in DEXTROSE 5% 100 ML IV SCH ×3 (05:20→22:26)
[2021-05-24] MEDS: MIDODRINE 5 MG TAB PO SCH ×3 (05:21→18:11)
[2021-05-24] MEDS: LEVOTHYROXINE 0.088 MG TAB PO SCH (06:13)
[2021-05-24 07:02] LABS: ALBUMIN 1.4 g/dL (3.4-5.0); ANION GAP 11.4 (8-16); CARBON DIOXIDE 21.3 mmol/L (21-32); POTASSIUM 3.7 mmol/L (3.5-5.1); TOTAL BILIRUBIN 0.3 mg/dL (0.0-1.0)
[2021-05-24 07:04] LABS: BASOPHILS % (AUTO) 0.2 % (0.0-2.0); EOSINOPHILS % (AUTO) 1.5 % (0.0-4.0); HEMATOCRIT 26.8 % (36-52); HEMOGLOBIN 8.7 g/dL (12.0-18.0); LYMPHOCYTES # (AUTO) 0.3 K/uL (2.0-11.5); MEAN CORPUSCULAR HEMOGLOBIN 36 pg (27-31); MEAN CORPUSCULAR HGB CONC 32 g/dL (33-37); MEAN CORPUSCULAR VOLUME 109.3 fL (80-94); MONOCYTES # (AUTO) 0.1 K/uL (0.8-1.0); MONOCYTES % (AUTO) 3.8 % (1.7-9.3); NEUTROPHILS # (AUTO) 2.8 K/uL (1.8-7.7); NEUTROPHILS % (AUTO) 84.5 % (42.2-75.2); PLATELET COUNT (AUTO) 64 K/uL (140-450); RED BLOOD CELL COUNT(AUTO) 2.45 MIL/uL (4.20-6.10); RED CELL DISTRIBUTION WIDTH 20.5 % (11.6-13.7); WHITE BLOOD COUNT (AUTO) 3.3 K/uL (4.8-10.8)
--- NOTE | 2021-05-24 07:25 | NUR ---
BEDSIDE REPORT RECEIVED FROM TRUCK LEASING MANAGER NURSE. PT RESTING IN BED ON ROOM AIR, PT UNABLE TO MAKE NEEDS KNOWN FLACC O. ALL SAFETY MEASURES ARE IN PLACE.
[2021-05-24 08:00] VITALS: BP 84/48
[2021-05-24 08:07] LABS: FOLIC ACID > 20.00 ng/mL (>3.0)
--- NOTE | 2021-05-24 08:30 | NUR ---
MEDICATION ADMINISTRATION UNSUCCESSFUL , PT NOT SWALLOWING. PT ONLY RESPONSIVE TO PAINFUL STIMULI. MD AWARE ALL SAFETY MEASURES IN PLACE.
--- NOTE | 2021-05-24 08:35 | NUR ---
BP 73/47 . MD ROCA PAGED. AWAITING ORDERS.
[2021-05-24] MEDS: LACTULOSE 20 GM/30 ML UDC PO SCH (08:37)
[2021-05-24] MEDS: levETIRAcetam 500 MG TAB PO SCH (08:37)
[2021-05-24] MEDS: VIT-B COMP/VIT-C/FOLIC ACID 1 TAB PO SCH (08:37)
[2021-05-24] MEDS: PYRIDOXINE 50 MG TAB PO SCH (08:38)
[2021-05-24] MEDS: POTASSIUM CHLORIDE 20% 40 MEQ/15 ML UDC PO SCH ×2 (08:38→21:00)
[2021-05-24] MEDS: FOAM DRESSING TP SCH (08:38)
[2021-05-24] MEDS: MULTIVITAMIN 1 TAB PO SCH (08:38)
--- NOTE | 2021-05-24 08:52 | NUR ---
PT REASSESSED BP 95/48
--- NOTE | 2021-05-24 09:17 | NUR ---
PT O2 96% ON 2L NC
--- NOTE | 2021-05-24 09:38 | NUR ---
MD POOLE AT BEDSIDE.
[2021-05-24] MEDS ORDERED: NACL 0.9% 500 ML IV SCH (09:45)
--- NOTE | 2021-05-24 09:53 | NUR ---
MD BUSTILLO AT BEDSIDE
[2021-05-24] MEDS ORDERED: SODIUM PHOSPHATE 118 ML ENEM RC SCH (10:00)
--- NOTE | 2021-05-24 10:25 | NUR ---
ENEMA COMPLETE PT TOLERATED WELL.
[2021-05-24] MEDS: POTASSIUM CHL 20 MEQ / DEXT 5% 1,000 ML IV SCH (11:01)
--- NOTE | 2021-05-24 11:24 | NUR ---
PT CHANGED REPOSITIONED, AND CLEANSED. ONE LARGE BM AT THIS TIME BROWN , AND SOFT.
[2021-05-24 12:00] VITALS: BP 91/49
--- NOTE | 2021-05-24 12:45 | NUR ---
PT ROUNDED ON PT ON 4 L NC 97%. ALL SAFETY MEASURES IN PLACE
--- NOTE | 2021-05-24 13:30 | NUR ---
MEDICATIONS GIVEN PER MD ORDER. PT EDUCATED AND UNABLE TO VERBALIZED UNDERSTANDING ALL SAFETY MEASURES ARE IN PLACE.
[2021-05-24] MEDS: GAUZE TP SCH (13:44)
[2021-05-24] MEDS: SKINTEGRITY HYDROGEL TP SCH (13:45)
[2021-05-24] MEDS: LEVOFLOXACIN 500 MG/D5W PREMIX 100 ML IV SCH (15:00)
--- NOTE | 2021-05-24 15:20 | NUR ---
PT ASSESSED BP 90/54 . 02% 96 ON 4 L NC
[2021-05-24 16:00] VITALS: BP 96/46
--- NOTE | 2021-05-24 17:59 | NUR ---
PT CHNAGED REPOSITIONED 2ND BM SO FAR BROWN SOFT. PT TOLERATED WELL 2 PERSON ASSIST.
--- NOTE | 2021-05-24 18:13 | NUR ---
PT REASSESSED 2 L NC 94%
--- NOTE | 2021-05-24 19:14 | NUR ---
PATIENT ENDORSED TO COLLECTION SPECIALIST RN . PATIENT IN STABLE CONDITION
--- NOTE | 2021-05-24 19:30 | NUR ---
PATIENT RECEIVED IN BED ALERT. TRACH/VENT FI02 24, TV 500, RATE 12, AND PEAK 5. PATIENT REQUIRES MAXIMAL CARE WITH ADL'S/TRANSFERS. IV POTASSIUM CONTINUED. LAB SCHEDULED. TUBE FEEDING CONTINUED AT 65CC/HR. NO NAUSEA/VOMITING NOTED. SEIZURE PRECAUTIONS MAINTAINED. REQUIRES 2 PERSON ASSISTANCE. SACRAL DRESSING INTACT. DEBRIDEMENT NOTED ON . FLACC 0. MAZARIEGOS CATHETER PATENT WITH 300CC IN BAG. NO ACUTE DISTRESS NOTED. PATIENT REQUIRES 2 PERSON ASSIST. WOUND CARE RENDERED. NO ACUTE DISTRESS NOTED.
[2021-05-24 20:00] VITALS: BP 102/62
[2021-05-24 20:54] LABS: FERRITIN 545 ng/mL (30 - 400)
[2021-05-24] MEDS: levETIRAcetam 500 MG in NACL 0.9% 100 ML IV SCH (21:00)
[2021-05-25] VITALS: BP 98/58
[2021-05-25] MEDS: Z-GUARD PASTE TP SCH ×2 (01:00→12:48)
[2021-05-25] MEDS: HYDRAGUARD CREAM TP SCH ×2 (01:00→12:48)
[2021-05-25 04:00] VITALS: BP 102/58
--- NOTE | 2021-05-25 05:17 | NUR ---
PT ROUNDED ON PT ON 4 L NC 97%. ALL SAFETY MEASURES IN PLACE. REPOSITIONED NEEDED. NO ACUTE DISTRESS NOTED. PT SEEN AND EVALUATED PER RT. NO ACUTE DISTRESS NOTED.
[2021-05-25] MEDS: CLINDAMYCIN 900 MG in DEXTROSE 5% 100 ML IV SCH ×3 (05:37→21:47)
[2021-05-25] MEDS: MIDODRINE 5 MG TAB PO SCH ×3 (05:37→19:05)
[2021-05-25] MEDS: LEVOTHYROXINE 0.088 MG TAB PO SCH (05:37)
[2021-05-25 07:10] LABS: ANION GAP 14.2 (8-16); CARBON DIOXIDE 22.5 mmol/L (21-32); CREATININE 0.8 mg/dL (0.6-1.3); POTASSIUM 3.7 mmol/L (3.5-5.1)
[2021-05-25 07:19] LABS: BASOPHILS % (AUTO) 0.2 % (0.0-2.0); EOSINOPHILS # (AUTO) 0.1 K/uL (0-0.4); EOSINOPHILS % (AUTO) 3.2 % (0.0-4.0); HEMATOCRIT 25.7 % (36-52); HEMOGLOBIN 8.4 g/dL (12.0-18.0); LYMPHOCYTES # (AUTO) 0.3 K/uL (2.0-11.5); LYMPHOCYTES % (AUTO) 12.1 % (20.5-51.1); MEAN CORPUSCULAR HEMOGLOBIN 36 pg (27-31); MEAN CORPUSCULAR HGB CONC 33 g/dL (33-37); MEAN CORPUSCULAR VOLUME 108.7 fL (80-94); MONOCYTES # (AUTO) 0.1 K/uL (0.8-1.0); MONOCYTES % (AUTO) 5.6 % (1.7-9.3); NEUTROPHILS % (AUTO) 78.9 % (42.2-75.2); PLATELET COUNT (AUTO) 61 K/uL (140-450); RED BLOOD CELL COUNT(AUTO) 2.37 MIL/uL (4.20-6.10); RED CELL DISTRIBUTION WIDTH 20.1 % (11.6-13.7); WHITE BLOOD COUNT (AUTO) 2.6 K/uL (4.8-10.8)
--- NOTE | 2021-05-25 07:20 | NUR ---
RECEIVED REPORT FROM MASTER CONTROL SUPERVISOR NURSE. PATIENT LYING DOWN IN BED. NO DISTRESS NOTED. APHASIC, ON O2 2L/MIN VIA NC. SACRAL WOUND DRESSING DRY AND INTACT. AAOX1, AROUSABLE TO VOICE. FLACC 0. IV SITE INTACT, PATENT, AND INFUSING IVF PER MD ORDERS. REVIEWED PLAN OF CARE WITH PATIENT. UNABLE TO COMPREHEND. SAFETY MEASURES IN PLACE, CALL LIGHT WITHIN REACH. WILL CONTINUE TO MONITOR.
[2021-05-25 08:00] VITALS: BP 116/56
[2021-05-25] MEDS: VIT-B COMP/VIT-C/FOLIC ACID 1 TAB PO SCH (09:00)
[2021-05-25] MEDS: PYRIDOXINE 50 MG TAB PO SCH (09:00)
[2021-05-25] MEDS: levETIRAcetam 500 MG in NACL 0.9% 100 ML IV SCH ×2 (09:00→21:04)
[2021-05-25] MEDS: MULTIVITAMIN 1 TAB PO SCH (09:00)
[2021-05-25] MEDS: LACTULOSE 20 GM/30 ML UDC PO SCH (09:00)
[2021-05-25] MEDS: POTASSIUM CHLORIDE 20% 40 MEQ/15 ML UDC PO SCH ×2 (09:00→21:00)
[2021-05-25] MEDS: POTASSIUM CHL 20 MEQ / DEXT 5% 1,000 ML IV SCH (09:44)
--- NOTE | 2021-05-25 10:47 | NUR ---
SCHEDULED MEDICATIONS DUE GIVEN. WILL CONTINUE TO MONITOR.
[2021-05-25 12:00] VITALS: BP 92/55
[2021-05-25] MEDS: SKINTEGRITY HYDROGEL TP SCH (12:48)
[2021-05-25] MEDS: GAUZE TP SCH (12:48)
[2021-05-25] MEDS: ALBUTEROL 0.083% 2.5 MG/3 ML NEBU INH SCH ×2 (12:54→21:00)
[2021-05-25] MEDS: LEVOFLOXACIN 500 MG/D5W PREMIX 100 ML IV SCH (15:57)
--- NOTE | 2021-05-25 15:58 | NUR ---
SCHEDULED MEDICATIONS DUE GIVEN. WILL CONTINUE TO MONITOR.
[2021-05-25 16:00] VITALS: BP 116/95
--- NOTE | 2021-05-25 19:05 | NUR ---
SCHEDULED MEDICATIONS DUE GIVEN. WILL CONTINUE TO MONITOR.
--- NOTE | 2021-05-25 19:20 | NUR ---
RECEIVED REPORT FROM YECENIA HANSON FOR CONTINUITY OF CARE. PT SITTING UP AA, RESPONSIVE TO VERBAL/TACTILE STIMULI. NO APPARENT S/S OF ACUTE DISTRESS. BREATHING EVEN AND UNLABORED ON 1L NC WITH O2 SAT OF 98%. NO S/S OF CP, SOB OR PAIN. L HAND 24G INTACT/PATENT WITH D5%KCL 20MEQ@40ML/HR. MAZARIEGOS CATH INTACT/PATENT WITH YELLOW URINE DRAINING TO GRAVITY. POC AND WHITE COMMUNICATION BOARD UPDATED. BED IN LOW/LOCKED POSITION. CALL LIGHT WITHIN REACH. PT ENCOURAGED TO CALL FOR ANY NEEDS/ASSISTANCE. WILL CONTINUE TO MONITOR.
[2021-05-25 20:00] VITALS: BP 95/44
--- NOTE | 2021-05-25 21:00 | NUR ---
PT ALERT AND AWAKE ON RA WITH NO SINGS OF RESPIRATORY DISTRESS. TOLERATED TX AND CPT. WILL CONTINUE TO MONITOR.
[2021-05-26] VITALS: BP 96/51
[2021-05-26] MEDS: ALBUTEROL 0.083% 2.5 MG/3 ML NEBU INH SCH ×4 (01:00→19:00)
[2021-05-26] MEDS: HYDRAGUARD CREAM TP SCH ×2 (01:05→13:02)
[2021-05-26] MEDS: Z-GUARD PASTE TP SCH ×2 (01:06→13:02)
[2021-05-26 04:00] VITALS: BP 96/45
[2021-05-26] MEDS: CLINDAMYCIN 900 MG in DEXTROSE 5% 100 ML IV SCH ×3 (05:13→21:52)
[2021-05-26 05:15] LABS: BASOPHILS % (AUTO) 0.3 % (0.0-2.0); EOSINOPHILS % (AUTO) 2.1 % (0.0-4.0); HEMATOCRIT 23.4 % (36-52); HEMOGLOBIN 7.8 g/dL (12.0-18.0); LYMPHOCYTES # (AUTO) 0.4 K/uL (2.0-11.5); LYMPHOCYTES % (AUTO) 16.9 % (20.5-51.1); MEAN CORPUSCULAR HEMOGLOBIN 36 pg (27-31); MEAN CORPUSCULAR HGB CONC 33 g/dL (33-37); MEAN CORPUSCULAR VOLUME 107.7 fL (80-94); MONOCYTES # (AUTO) 0.1 K/uL (0.8-1.0); MONOCYTES % (AUTO) 5.9 % (1.7-9.3); NEUTROPHILS # (AUTO) 1.8 K/uL (1.8-7.7); NEUTROPHILS % (AUTO) 74.8 % (42.2-75.2); PLATELET COUNT (AUTO) 62 K/uL (140-450); RED BLOOD CELL COUNT(AUTO) 2.17 MIL/uL (4.20-6.10); RED CELL DISTRIBUTION WIDTH 19.4 % (11.6-13.7); WHITE BLOOD COUNT (AUTO) 2.4 K/uL (4.8-10.8)
[2021-05-26] MEDS: LEVOTHYROXINE 0.088 MG TAB PO SCH (06:01)
[2021-05-26] MEDS: MIDODRINE 5 MG TAB PO SCH ×3 (06:01→18:08)
[2021-05-26 06:05] LABS: ALBUMIN 1.4 g/dL (3.4-5.0); ANION GAP 13.3 (8-16); CARBON DIOXIDE 22.5 mmol/L (21-32); CREATININE 0.9 mg/dL (0.6-1.3); POTASSIUM 3.8 mmol/L (3.5-5.1); TOTAL BILIRUBIN 0.5 mg/dL (0.0-1.0)
--- NOTE | 2021-05-26 07:25 | NUR ---
REPORT GIVEN TO JERSEY HANSON FOR CONTINUITY OF CARE. NO APPARENT S/S OF ACUTE DISTRESS. BREATHING EVEN AND UNLABORED. BED IN LOW/LOCKED POSITION. CALL LIGHT WITHIN REACH. ALL NEEDS MET AT THIS TIME.
[2021-05-26 08:00] VITALS: BP 92/45
[2021-05-26] MEDS: LACTULOSE 20 GM/30 ML UDC PO SCH (08:16)
[2021-05-26] MEDS: VIT-B COMP/VIT-C/FOLIC ACID 1 TAB PO SCH (08:16)
[2021-05-26] MEDS: MULTIVITAMIN 1 TAB PO SCH (08:16)
[2021-05-26] MEDS: POTASSIUM CHLORIDE 20% 40 MEQ/15 ML UDC PO SCH ×2 (08:16→21:00)
[2021-05-26] MEDS: PYRIDOXINE 50 MG TAB PO SCH (08:17)
[2021-05-26] MEDS: levETIRAcetam 500 MG in NACL 0.9% 100 ML IV SCH ×2 (09:00→22:51)
--- NOTE | 2021-05-26 09:34 | NUR ---
PT RESTING IN BED. NO S/S OF DISTRESS. BREATHING SYMMETRICAL. CALL LIGHT IN REACH. ALL SAFETY MEASURES IN PLACE. IV RUNNING PER MD ORDER
[2021-05-26] MEDS ORDERED: LEVO750T51 PO (09:49)
[2021-05-26] MEDS ORDERED: KEP500 PO (09:49)
[2021-05-26] MEDS: POTASSIUM CHL 20 MEQ / DEXT 5% 1,000 ML IV SCH (09:54)
[2021-05-26 10:13] LABS: ANTI-NUCLEAR ANTIBODY,DIRECT Negative (Negative)
--- NOTE | 2021-05-26 11:55 | NUR ---
SPOKE TO NGOZI FROM [facility]. FACILITY DOES NOT TAKE PATIENTS WITH WOUNDS STAGE 2 OR HIGHER, MUST TRANSFER TO HIGHER LEVEL OF CARE FOR WOUND CARE. NOTIFIED DR ROCA. CM TO FIND NEW PLACEMENT FOR DISCHARGE
[2021-05-26 12:00] VITALS: BP 95/43
--- NOTE | 2021-05-26 12:03 | NUR ---
05/26/21 RD FOLLOW UP COMPLETED PLEASE REFER TO NUTRITION ASSESSMENT UNDER CARE ACTIVITY FOR ESTIMATED NUTRITIONAL NEEDS. 1.CONSIDER SWALLOW EVAL BEOFRE RESUMING FEEDS 2.RESUME PUREE DIET WHEN/IF MEDICALLY STABLE 3.RESUME ENSURE BID FOR BREAKFAST AND DINNER WHEN/IF MEDICALLY STABLE -THIS WILL PROVIDE 700 KCALS 40 GM PROTEIN. 4.RESUME MACRINA IX DAILY FOR LUNCH WHEN/IF MEDICALLY STABLE 5.RD TO FOLLOW-UP 2-3 DAYS, HIGH RISK REVIEWED BY ORLANDO LUTHER RD
[2021-05-26] MEDS: SKINTEGRITY HYDROGEL TP SCH (13:02)
[2021-05-26] MEDS: GAUZE TP SCH (13:02)
[2021-05-26] MEDS ORDERED: SODIUM CHLORIDE 3% 4 ML SOL INH PRN (13:14)
--- NOTE | 2021-05-26 14:00 | NUR ---
SPOKE TO FROM [facility]. PUT IN NEW ORDERS FOR BLOODWORK. NO S/S OF DISTRESS. CALL LIGHT IN REACH. ALL SAFETY MEASURES IN PLACE.
[2021-05-26] MEDS: LEVOFLOXACIN 500 MG/D5W PREMIX 100 ML IV SCH (15:00)
[2021-05-26 16:00] VITALS: BP 80/38
--- NOTE | 2021-05-26 16:43 | NUR ---
CHANGED IV DRESSING. PT PULLED OFF TAPE, AND MITTENS. PATIENT IV REDRESSED AND TAPED ON HAND. MITTENS REAPPLIED. WILL CONTINUE TO MONITOR PT. ALL SAFETY MEASURES IN PLACE.
[2021-05-26] MEDS ORDERED: NACL 0.9% 1,000 ML IV SCH (18:10)
--- NOTE | 2021-05-26 18:57 | NUR ---
PT RESTING IN BED. BOLUS RUNNING PER MD ORDER. SWALLOW EVAL ORDERED. NO S/S OF DISTRESS. ALL SAFETY MEASURES IN PLACE.
--- NOTE | 2021-05-26 19:45 | NUR ---
RECEIVED BEDSIDE REPORT FROM AM NURSE. PATIENT IS WELL RESTED WITH RESTRAINTS BILATERAL MITTENS. NO IV , CANNULA WAS REMOVED BY AM SHIFT RN. ALL SAFETY MEASURES ARE IN PLACE. MAZARIEGOS CATHETER IN PLACE DRAINING CLEAR YELLOW URINE. WILL CONTINUE TO MONITOR.
[2021-05-26 20:00] VITALS: BP 104/69
--- NOTE | 2021-05-26 20:04 | NUR ---
ENDORSED PT TO FISHER SWORDFISH NURSE FOR CONTINUITY OF CARE. PT STABLE. BREATHING SYMMETRICAL. NO S/S OF DISTRESS. CALL LIGHT IN REACH. ALL SAFETY MEASURES IN PLACE. PT PULLED OFF MITTEN AND PULLED OUT IV ON LEFT HAND. CANULA INTACT.
--- NOTE | 2021-05-26 20:45 | NUR ---
INSERTED NEW IV LINE ON THE RIGHT FOREARM TOLERATED WELL. CALL LIGHT WITHIN REACH.
--- NOTE | 2021-05-26 21:52 | NUR ---
CLINDAMYCIN IVPB GIVEN ORDERED.
--- NOTE | 2021-05-26 22:51 | NUR ---
JORDON IVPB ADMINISTERED PER MD ORDERED.
[2021-05-27] VITALS: BP 103/57
[2021-05-27] MEDS: HYDRAGUARD CREAM TP SCH ×2 (00:58→13:00)
[2021-05-27] MEDS: ALBUTEROL 0.083% 2.5 MG/3 ML NEBU INH SCH ×4 (01:00→19:30)
[2021-05-27] MEDS: Z-GUARD PASTE TP SCH ×2 (01:00→13:00)
--- NOTE | 2021-05-27 01:00 | NUR ---
Tx NOT GIVEN DUE TO PT REFUSING PT PUSHED MYSELF + MASK AWAY PT APPEARED TO BE UPSET AND MEDS WERE WASTED
[2021-05-27 04:00] VITALS: BP 102/51
[2021-05-27] MEDS: CLINDAMYCIN 900 MG in DEXTROSE 5% 100 ML IV SCH (05:04)
[2021-05-27] MEDS: MIDODRINE 5 MG TAB PO SCH ×3 (06:19→18:42)
[2021-05-27] MEDS: LEVOTHYROXINE 0.088 MG TAB PO SCH (06:19)
--- NOTE | 2021-05-27 07:05 | NUR ---
RECEIVED REPORT FROM HEAD OF HUMAN RESOURCES NURSE. BREATHING SYMMETRICAL. NO S/S OF DISTRESS. IV RUNNING PER MD ORDERS. CALL LIGHT IN REACH. ALL SAFETY MEASURES ARE IN PLACE.
--- NOTE | 2021-05-27 07:14 | NUR ---
ENDORSED TO AM NURSE FOR CONTINUITY OF CARE. PATIENT IN STABLE CONDITION.
[2021-05-27 08:00] VITALS: BP 93/35
[2021-05-27] MEDS: VIT-B COMP/VIT-C/FOLIC ACID 1 TAB PO SCH (08:14)
[2021-05-27] MEDS: LACTULOSE 20 GM/30 ML UDC PO SCH (08:14)
[2021-05-27] MEDS: PYRIDOXINE 50 MG TAB PO SCH (08:15)
[2021-05-27] MEDS: POTASSIUM CHLORIDE 20% 40 MEQ/15 ML UDC PO SCH ×2 (08:15→21:15)
[2021-05-27] MEDS: MULTIVITAMIN 1 TAB PO SCH (08:15)
[2021-05-27] MEDS: FOAM DRESSING TP SCH (08:16)
--- NOTE | 2021-05-27 08:17 | NUR ---
PT RESTING IN BED. BREATHING SYMMETRICAL. NO S/S OF DISTRESS. IV RUNNING PER MD ORDERS. CALL LIGHT IN REACH. ALL SAFETY MEASURES ARE IN PLACE. FOAM DRESSING NOT APPLIED PER PARAMETERS FOR Q3. WILL CHANGE TOMORROW OR WHEN SOILED.
[2021-05-27] MEDS: levETIRAcetam 500 MG in NACL 0.9% 100 ML IV SCH ×2 (08:41→21:15)
[2021-05-27] MEDS: POTASSIUM CHL 20 MEQ / DEXT 5% 1,000 ML IV SCH (09:44)
--- NOTE | 2021-05-27 11:03 | NUR ---
PT RESTING IN BED. BREATHING SYMMETRICAL. NO S/S OF DISTRESS. IV RUNNING PER MD ORDERS. CALL LIGHT IN REACH. ALL SAFETY MEASURES ARE IN PLACE. MITTENS IN PLACE. IV PATENT AND FLUSHING
[2021-05-27 12:00] VITALS: BP 97/50
[2021-05-27] MEDS: GAUZE TP SCH (13:00)
[2021-05-27] MEDS: SKINTEGRITY HYDROGEL TP SCH (13:00)
--- NOTE | 2021-05-27 14:02 | NUR ---
DC PLANNING LATE ENTRY SW SEND PATIENT'S INFORMATION AND CLINICAL PACKET AT [facility] TO CONSIDER PATIENT FOR ADMISSION TO THE FACILITY WITH COMPLETED CONFIRMATION FOR 05/27/2021 AT ABOUT 11:48AM. JOEL CALL [facility] AT AND SPOKE TO DANNA PROJECT MANAGER INTERIOR DESIGN TO FOLLOW UP WITH PATIENT STATUS ON ACCEPTANCE TO SNF. PER DANNA THE CLINICALS AND IN REVIEW AND SHE WILL FOLLOW UP WITH A CALL WHEN DETERMINED IF PATIENT IS ACCEPTED TO THEIR FACILITY. JOEL THANK HER FOR THE INFORMATION AND ENDED THE CALL. Addendum: 05/27/21 at 1454 by Gwen Funes CM DC PLANNING LATE ENTRY SW SEND PATIENT'S INFORMATION AND CLINICAL PACKET VIA FAX AT [facility] TO CONSIDER PATIENT FOR ADMISSION TO THE FACILITY WITH COMPLETED CONFIRMATION FOR 05/27/2021 AT ABOUT 11:59AM. JOEL CALL [facility] AT AND SPOKE TO JIM TO FOLLOW UP WITH PATIENT STATUS ON ACCEPTANCE TO FACILITY. PER JIM THE CLINICALS ARE STILL IN REVIEW AND ADMISSIONS DEPARTMENT WILL FOLLOW UP WITH A CALL TO THESE MOVER WHEN DETERMINED IF PATIENT IS ACCEPTED TO THEIR FACILITY. JOEL THANK HER FOR THE INFORMATION AND ENDED THE CALL. Addendum: 05/27/21 at 1540 by Gwen Funes CM DC PLANNING JOEL RECEIVED A CALL BACK FROM LISA FROM [facility] STATING THAT PATIENT'S CLINICALS WAS REVIEWED AND IS NOT ACCEPTED TO THE FACILITY AT THESE TIME DUE TO INS. [employer] WITH NO SKILL NEED. PER LISA THEY DO NOT HAVE A PRISON CARE BEDS AT THIS TIME. JOEL THANKED HER FOR THE CALL BACK AND ENDED THE CALL. Addendum: 05/28/21 at 1216 by Gwen Funes CM DC PLANNING SW CALL PATIENT'S IRC/DUTY WORKER TODAY PAMELA CAPPS AT SW SPEAK ABOUT PATIENT'S STATUS AND NEED FOR EMERGENCY PLACEMENT SINCE LAST DISCUSSION ON 05/26/2021 WITH IRC/DUTY WORKER RE HER . SW ADDRESS ISSUE AGAIN WITH DUTY WORKER Iesha PAMELA CAPPS, JOEL UPDATED HER ON THE REFERRALS PROVIDED BY HER YESTERDAY 05/27/2021 AND INFORMED HER THAT ALL PATIENT'S INFORMATION AND CLINICALS WAS SEND TO [facility] AND [facility] OF YESTERDAY 05/27/2021 HOWEVER; FACILITIES HAVE DENIED PATIENT'S PLACEMENT MAINLY DUE TO INSURANCE BEEN [employer]. 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 IRC/WORKER DID NOT PROVIDED RESPONSE; YET STATED THAT SHE WILL BE WORKING ON PLACEMENT WITH HER OTHER COLLE[employer] POLLY PEREZ . PER PAMELA CAPPS SHE WILL BE CONTACTING HER SELF TO BOTH REFERRALS AGAIN [facility] AND [facility] AND WILL ADVOCATE FOR PATIENT SINCE THE FACILITY HAS BEEN WORKING WITH WITH THESE PROVIDERS IN THE PAST AND AGREED TO FOLLOW UP WITH JOEL/JIM SOON SHE GETS ANY OTHER UPDATE IN REGARDS TO PLACEMENT FOR PATIENT. SW AGREED AND ENDED THE CALL. SW WILL FOLLOW UP NEED.
[2021-05-27] MEDS: LEVOFLOXACIN 500 MG/D5W PREMIX 100 ML IV SCH (14:47)
[2021-05-27 16:00] VITALS: BP 91/56
--- NOTE | 2021-05-27 16:23 | NUR ---
PT RESTING IN BED. ST AT BEDSIDE FOR SWALLOW EVAL. PT OK TO START PUREE DIET, NECTAR THICK. BREATHING SYMMETRICAL. NO S/S OF DISTRESS. IV RUNNING PER MD ORDERS. CALL LIGHT IN REACH. ALL SAFETY MEASURES ARE IN PLACE.
--- NOTE | 2021-05-27 16:34 | NUR ---
PT WAS SEEN FOR DYSPHAGIA. PT WAS ABLE TO SAFELY SWALLOW PUREE DIET WITH NECTAR THICK LIQUID. MILD COUGH FOR THIN LIQUID. RECOMMENDATION PUREE DIET WITH NTL.
--- NOTE | 2021-05-27 17:46 | NUR ---
PT WAS PULLING OFF MITTENS, ATTEMPTING TO PULL OUT IV LINE. MITTENS REAPPLIED FOR PT SAFETY. PT STABLE. ALL SAFETY MEASURES IN PLACE.
--- NOTE | 2021-05-27 19:15 | NUR ---
ENDORSED PT TO MULTIPLE SPINDLE SCREW MACHINE OPERATOR NURSE FOR CONTINUITY OF CARE. PT STABLE. BREATHING SYMMETRICAL. NO S/S OF DISTRESS. CALL LIGHT IN REACH. ALL SAFETY MEASURES IN PLACE. IV PATENT. IV FLUIDS RUNNING PER MD ORDER. SPOKE TO DR KAUR FROM [facility] REGARDING LAB WORK ORDERED. STATED HE WILL NOTIFY DR PHILLIPS TO COME ASSESS AND EVALUATE LABS. Addendum: 05/27/21 at 1925 by Noah Terrazas RN RN PATIENT ATE 40-50% OF DINNER.
--- NOTE | 2021-05-27 19:16 | NUR ---
RECEIVED REPORT FROM AM NURSE. PATIENT IS WELL RESTED. NO S/S OF RESPIRATORY DISTRESS. RESPIRATION EVEN UNLABORED. CALL LIGHT WITHIN REACH. ALL SAFETY MEASURES ARE IN PLACE. MAZARIEGOS CATHETER DRAINING WELL. DENIES PAIN. IVF INFUSING WELL. WILL CONTINUE TO MONITOR.
--- NOTE | 2021-05-27 19:50 | NUR ---
PT RECEIVED ON [facility] 375 +5 f26 30% W/ PATENT/SECURED SHILEY 7 XLT TRACH VENT PLUGGED INTO RED OUTLET W/ ALARMS ON AND AUDIBLE AMBU IS AT BEDSIDE WILL CONTINUE TO MONITOR Addendum: 05/27/21 at 2324 by Matt Ge Jr RT WRONG PT - PLEASE DISREGARD NOTE
[2021-05-27 20:00] VITALS: BP 98/57
--- NOTE | 2021-05-27 21:15 | NUR ---
ADMINISTERED MEDS SCHEDULED DUE ORDERED.
[2021-05-28] VITALS: BP 94/56
[2021-05-28] MEDS: ALBUTEROL 0.083% 2.5 MG/3 ML NEBU INH SCH ×4 (01:26→19:41)
[2021-05-28] MEDS: Z-GUARD PASTE TP SCH ×2 (01:39→13:19)
[2021-05-28] MEDS: HYDRAGUARD CREAM TP SCH ×2 (01:39→13:19)
--- NOTE | 2021-05-28 03:10 | NUR ---
PATIENT IS SLEEPING. NO S/S OF DISTRESS NOTED. SAFETY MEASURES IN PLACE.
[2021-05-28 04:00] VITALS: BP 96/54
--- NOTE | 2021-05-28 04:30 | NUR ---
PATIENT IV IS INFILTRATED. INSERTED A NEW IV LINE ON THE LEFT FOREARM. TOLERATED WELL.
--- NOTE | 2021-05-28 05:05 | NUR ---
PATIENT IS KEPT CLEAN, DRY AND COMFORTABLE.
[2021-05-28 06:26] LABS: BASOPHILS % (AUTO) 0.1 % (0.0-2.0); EOSINOPHILS % (AUTO) 1.3 % (0.0-4.0); HEMATOCRIT 25.9 % (36-52); HEMOGLOBIN 8.7 g/dL (12.0-18.0); LYMPHOCYTES # (AUTO) 0.4 K/uL (2.0-11.5); LYMPHOCYTES % (AUTO) 14.6 % (20.5-51.1); MEAN CORPUSCULAR HEMOGLOBIN 36 pg (27-31); MEAN CORPUSCULAR HGB CONC 34 g/dL (33-37); MEAN CORPUSCULAR VOLUME 108.5 fL (80-94); MONOCYTES # (AUTO) 0.1 K/uL (0.8-1.0); MONOCYTES % (AUTO) 5.4 % (1.7-9.3); NEUTROPHILS # (AUTO) 2.1 K/uL (1.8-7.7); NEUTROPHILS % (AUTO) 78.6 % (42.2-75.2); PLATELET COUNT (AUTO) 58 K/uL (140-450); RED BLOOD CELL COUNT(AUTO) 2.39 MIL/uL (4.20-6.10); RED CELL DISTRIBUTION WIDTH 19.9 % (11.6-13.7); WHITE BLOOD COUNT (AUTO) 2.6 K/uL (4.8-10.8)
[2021-05-28] MEDS: LEVOTHYROXINE 0.088 MG TAB PO SCH (06:38)
[2021-05-28] MEDS: MIDODRINE 5 MG TAB PO SCH ×3 (06:38→19:00)
[2021-05-28 06:54] LABS: ALBUMIN 1.5 g/dL (3.4-5.0); ANION GAP 12.6 (8-16); CARBON DIOXIDE 23.4 mmol/L (21-32); CREATININE 0.8 mg/dL (0.6-1.3); TOTAL BILIRUBIN 0.4 mg/dL (0.0-1.0)
--- NOTE | 2021-05-28 07:25 | NUR ---
ENDORSED TO AM NURSE FOR CONTINUITY OF CARE. PATIENT IS IN STABLE CONDITION.
--- NOTE | 2021-05-28 07:27 | NUR ---
RECEIVED REPORT FROM EXPENSE CLERK RN FOR CONTINUITY OF CARE. PATIENT IS RESTING IN BED. NO S/S OF DISTRESS. RESPIRATIONS ARE EVEN AND UNLABORED ON ROOM AIR. IV SITE IS A 22G AT THE LEFT WRIST WITH IVF RUNNING WELL. ALL SAFETY PRECAUTIONS IN PLACE.
[2021-05-28 08:00] VITALS: BP 109/53
[2021-05-28] MEDS: MULTIVITAMIN 1 TAB PO SCH (09:42)
[2021-05-28] MEDS: LACTULOSE 20 GM/30 ML UDC PO SCH (09:43)
[2021-05-28] MEDS: PYRIDOXINE 50 MG TAB PO SCH (09:43)
[2021-05-28] MEDS: POTASSIUM CHLORIDE 20% 40 MEQ/15 ML UDC PO SCH ×2 (09:44→21:41)
[2021-05-28] MEDS: levETIRAcetam 500 MG in NACL 0.9% 100 ML IV SCH ×2 (09:44→21:37)
[2021-05-28] MEDS: VIT-B COMP/VIT-C/FOLIC ACID 1 TAB PO SCH (09:47)
[2021-05-28] MEDS: POTASSIUM CHL 20 MEQ / DEXT 5% 1,000 ML IV SCH (10:18)
--- NOTE | 2021-05-28 10:51 | NUR ---
WOUND CARE RE-EVALUATION NOTE: WOUND ASSESSMENT DONE WITH PRIMARY RN, MOISTURE ASSOCIATED DERMATITIS AND SACRALCOCCYX WOUND IMPROVING, PROGRESSION OF PRESSURE INJURY FROM DTI TO UN-STAGEABLE TO RIGHT MEDIAL KNEE. POC DISCUSSED WITH PRIMARY RN. INTEGUMENTARY: -MOISTURE ASSOCIATED DERMATITIS FROM R/L GROINS EXTENDED TO SCROTUM SKIN DRY AND INTACT -PRESSURE INJURY SACRALCOCCYX UN-STAGEABLE WOUND BED WITH 80% SOFT BROWN SLOUGH TISSUE AND 20% SCATTERED PINK GRANULATING TISSUE JABIER-WOUND SKIN BLANCHABLE REDNESS ENTIRE AREA [id number], MOIST, NO ODOR. -PRESSURE INJURY DTI TO LEFT MEDIAL KNEE 5X3CM 100% MAROON WITH BLISTERING SKIN, BLOODY FLUID, BLISTER INTACT, JABIER WOUND SKIN DRY INTACT -PRESSURE INJURY UN-STAGEABLE LEFT FOOT PLANTAR ASPECT 2X1CM 100% BLACK DRY ESCHAR TISSUE, JABIER WOUND SKIN INTACT. -PRESSURE INJURY STAGE 2 LEFT MEDIAL HEEL 2X2CM CLEAR FLUIDS BLISTERING SKIN INTACT -PRESSURE INJURY RIGHT TROCHANTER RESURFACING WITH 4X3CM NON-BLANCHABLE REDNESS, JABIER WOUND SKIN DRY INTACT -PRESSURE INJURY DTI TO RIGHT UPPER LATERAL LEG 3X2CM 100% MAROON BLISTERING SKIN, THIN AND EASILY TO TORN, JABIER WOUND SKIN DRY INTACT -PRESSURE INJURY UN-STAGEABLE TO RIGHT MEDIAL KNEE 3X3CM 100% BLACK, SKIN INTACT, JABIER WOUND SKIN NON-BLANCHABLE REDNESS
[2021-05-28 12:00] VITALS: BP 105/60
[2021-05-28] MEDS: GAUZE TP SCH (13:18)
[2021-05-28] MEDS: SKINTEGRITY HYDROGEL TP SCH (13:19)
--- NOTE | 2021-05-28 13:45 | NUR ---
05/28/21 RD FOLLOW UP COMPLETED PLEASE REFER TO NUTRITION ASSESSMENT UNDER CARE ACTIVITY FOR ESTIMATED NUTRITIONAL NEEDS. 1.CONTINUE PUREE DIET TOLERATED 2.CONTINUE ENSURE BID FOR BREAKFAST AND DINNER, ALTERNATE FLAVORS -THIS WILL PROVIDE 700 KCALS 40 GM PROTEIN. 3.RECOMMEND MACRINA IX DAILY FOR LUNCH 4.RD TO FOLLOW-UP 2-3 DAYS, HIGH RISK REVIEWED BY ORLANDO LUTHER RD
--- NOTE | 2021-05-28 13:59 | NUR ---
ADMINISTERED SCHEDULED MEDICATIONS. PATIENT IS AWAKE WITH NO S/S OF DISTRESS. RESPIRATIONS ARE EVEN AND UNLABORED ON ROOM. ALL SAFETY PRECAUTIONS IN PLACE.
--- NOTE | 2021-05-28 15:30 | NUR ---
DC PLANNING SW CONTACT PATIENT'S IRC WORKER POLLY PEREZ AT TO FOLLOW UP WITH PATIENT'S SEARCH FOR PLACEMENT. PER IRC WORKER THERE IS A SNF IN [place] THAT MAY BE TAKING PATIENT. POLLY PROVIDED SW WITH INFORMATION JULIO CBruce RAMIREZ IN THE ADMISSIONS DEPARTMENT. FAXED PATIENT'S CLINICALS AND WILL CONTACT RAMIRE[facility] TO FOLLOW UP .
[2021-05-28 16:00] VITALS: BP 103/59
--- NOTE | 2021-05-28 19:45 | NUR ---
ENDORSED PATIENT TO FINAL FINISHER FORGING DIES RN FOR CONTINUITY OF CARE. PATIENT IS STABLE.
--- NOTE | 2021-05-28 19:50 | NUR ---
RECEIVED PT FROM DAY SHIFT NURSE FOR CONTINUITY OF CARE. PT AWAKE AND ALERT. PT ON RA. PT NOT IN ANY DISTRESS AT THIS TIME. ALL SAFETY PRECAUTIONS IN PLACE. CALL LIGHT WITHIN REACH.WILL CONTINUE TO MONITOR.
[2021-05-28 20:00] VITALS: BP 111/62
--- NOTE | 2021-05-28 21:30 | NUR ---
SCHEDULED MEDICATIONS GIVEN. REPOSITIONED FOR COMFORT. PT TOLERATED WELL. NO S/SX OF DISTRESS AT THIS TIME. SAFETY PRECAUTIONS IN PLACE. WILL CONTINUE TO MONITOR.
--- NOTE | 2021-05-28 23:05 | NUR ---
PT ASLEEP. NO S/SX OF RESPIRATORY DISTRESS. CALL LIGHT WITHIN REACH. WILL CONTINUE TO MONITOR.
[2021-05-29] MEDS: ALBUTEROL 0.083% 2.5 MG/3 ML NEBU INH SCH ×2 (01:07→07:08)
[2021-05-29] MEDS: HYDRAGUARD CREAM TP SCH (01:31)
[2021-05-29] MEDS: Z-GUARD PASTE TP SCH (01:31)
--- NOTE | 2021-05-29 03:33 | NUR ---
ROUNDS MADE. PT REPOSITIONED. PT TOLERATED WELL. ALL SAFETY PRECAUTION IN PLACE. WILL CONTINUE TO MONITOR.
[2021-05-29 04:00] VITALS: BP 118/56
[2021-05-29] MEDS: LEVOTHYROXINE 0.088 MG TAB PO SCH (06:37)
[2021-05-29] MEDS: MIDODRINE 5 MG TAB PO SCH (06:39)
--- NOTE | 2021-05-29 06:47 | NUR ---
PT STABLE. NO ACUTE EVENTS THROUGHOUT THE NIGHT.PT NOT IN ANY DISTRESS AND NO COMPLAINS AT THIS TIME. ALL NEEDS ATTENDED.WILL ENDORSE TO AM SHIFT NURSE. WILL CONTINUE TO MONITOR.
[2021-05-29 06:55] LABS: EOSINOPHILS # (AUTO) 0.1 K/uL (0-0.4); MEAN CORPUSCULAR HEMOGLOBIN 38 pg (27-31); MONOCYTES # (AUTO) 0.2 K/uL (0.8-1.0)
[2021-05-29 06:56] LABS: BASOPHILS % (AUTO) 0.3 % (0.0-2.0); EOSINOPHILS % (AUTO) 1.6 % (0.0-4.0); LYMPHOCYTES # (AUTO) 0.5 K/uL (2.0-11.5); LYMPHOCYTES % (AUTO) 13.9 % (20.5-51.1); MEAN CORPUSCULAR HGB CONC 35 g/dL (33-37); MEAN CORPUSCULAR VOLUME 110.5 fL (80-94); MONOCYTES % (AUTO) 6.1 % (1.7-9.3); NEUTROPHILS # (AUTO) 2.6 K/uL (1.8-7.7); NEUTROPHILS % (AUTO) 78.1 % (42.2-75.2); RED BLOOD CELL COUNT(AUTO) 2.35 MIL/uL (4.20-6.10); RED CELL DISTRIBUTION WIDTH 21.1 % (11.6-13.7); WHITE BLOOD COUNT (AUTO) 3.3 K/uL (4.8-10.8)
[2021-05-29 06:59] LABS: ALBUMIN 1.5 g/dL (3.4-5.0); ANION GAP 14.8 (8-16); CARBON DIOXIDE 22.3 mmol/L (21-32); CREATININE 0.6 mg/dL (0.6-1.3); POTASSIUM 4.1 mmol/L (3.5-5.1); TOTAL BILIRUBIN 0.4 mg/dL (0.0-1.0)
[2021-05-29 07:08] LABS: PLATELET COUNT (AUTO) 70 K/uL (140-450)
--- NOTE | 2021-05-29 09:12 | NUR ---
Patient awake, unable to verbalize needs but follows simple commands. Does no show pain or discomfort. Safety co measures in place, call light within reach, bed lowered and alarm activated.
[2021-05-29] MEDS: MULTIVITAMIN 1 TAB PO SCH (09:58)
[2021-05-29] MEDS: PYRIDOXINE 50 MG TAB PO SCH (09:59)
[2021-05-29] MEDS: VIT-B COMP/VIT-C/FOLIC ACID 1 TAB PO SCH (09:59)
[2021-05-29] MEDS: POTASSIUM CHLORIDE 20% 40 MEQ/15 ML UDC PO SCH (09:59)
[2021-05-29] MEDS: LACTULOSE 20 GM/30 ML UDC PO SCH (09:59)
[2021-05-29] MEDS: levETIRAcetam 500 MG in NACL 0.9% 100 ML IV SCH (10:01)
== END 2021-05-29 11:32 | DRG 720 ==
LOC: MED 10:51 → MTU 14:01 → MIC 14:10 → MTU 05-21 11:44
PROVIDERS: ADMIT Preventive Medicine Preventive Medicine/Occupational Environmental Medicine; ATTEND Preventive Medicine Preventive Medicine/Occupational Environmental Medicine
DX: A41.9 Sepsis, unspecified organism (principal); J96.01 Acute respiratory failure with hypoxia; N17.0 Acute kidney failure with tubular necrosis; J69.0 Pneumonitis due to inhalation of food and vomit; L89.150 Pressure ulcer of sacral region, unstageable; E87.2 Acidosis; E43 Unspecified severe protein-calorie malnutrition; D61.818 Other pancytopenia; E83.51 Hypocalcemia; D69.6 Thrombocytopenia, unspecified; E87.0 Hyperosmolality and hypernatremia; I44.1 Atrioventricular block, second degree; G40.909 Epilepsy, unspecified, not intractable, without status epilepticus; K56.41 Fecal impaction; N39.0 Urinary tract infection, site not specified; I35.0 Nonrheumatic aortic (valve) stenosis; G80.9 Cerebral palsy, unspecified; Z20.822 Contact with and (suspected) exposure to COVID-19; N32.81 Overactive bladder; E03.9 Hypothyroidism, unspecified; E83.52 Hypercalcemia; E86.0 Dehydration; E87.6 Hypokalemia; D53.9 Nutritional anemia, unspecified; B96.20 Unspecified Escherichia coli [E. coli] as the cause of diseases classified elsewhere; R73.9 Hyperglycemia, unspecified; M48.54XA Collapsed vertebra, not elsewhere classified, thoracic region, initial encounter for fracture; M85.80 Other specified disorders of bone density and structure, unspecified site; M20.12 Hallux valgus (acquired), left foot; K40.90 Unilateral inguinal hernia, without obstruction or gangrene, not specified as recurrent; Q90.9 Down syndrome, unspecified; Z68.22 Body mass index [BMI] 22.0-22.9, adult
CPT/HCPCS: 36415; 71045; 73630; 74018; 76700; 80048; 80053; 81001; 82525; 82607; 82728; 82746; 83540; 83605; 83655; 83690; 83735; 83880; 84100; 84443; 84484; 85007; 85025; 85045; 85610; 85651; 85730; 86038; 86140; 86430; 87040; 87081; 87086; 92610; 93005; 94640; 94667; 96365; 96367; 99285; A6248; J0456; J0696; J1953; J1956; J2060; J2765; J3480; J3490; J7060; J7070; J7613; Q0092